=== PATIENT | female | born 1955 | race Caucasian/White ===

== ENCOUNTER 2023-04-27 05:44 | Observation (INO) ==
[2023-04-27 06:10] LABS: Basophils # (auto) 0.06 K/uL (0-0.2); Basophils % (auto) 0.6 %; Eosinophils # (auto) 0.25 K/uL (0-0.50); Eosinophils % (auto) 2.5 %; Hematocrit (blood only) 37.1 % (37.0-47.0); Hemoglobin 12.6 g/dl (12.0-16.0); Immature Granulocytes # (auto) 0.03 K/uL (0.01-0.20); Immature Granulocytes % (auto) 0.3 %; Lymphocytes # (auto) 4.02 K/uL (1.2-3.4); Lymphocytes % (auto) 39.5 %; Mean Corpuscular Hemoglobin 29.9 pg (25.0-34.0); Mean Corpuscular Volume 88.1 fL (80.0-100.0); Mean Platelet Volume 9.9 fL (9.4-12.4); Monocytes # (auto) 0.72 K/uL (0.11-0.59); Monocytes % (auto) 7.1 %; Neutrophils # (auto) 5.11 K/uL (1.40-6.50); Platelet Count 307 K/uL (130-400); RDW Coefficient of Variation 12.8 % (11.5-14.5); RDW Standard Deviation 41.2 fL (36.4-46.3); Red Blood Count 4.21 M/uL (4.20-5.40); White Blood Count 10.19 K/ul (4.8-10.8)
[2023-04-27] MEDS ORDERED: NITROGLYCERIN SL 0.4 MG/TAB TAB SL STA (06:19)
--- NOTE | 2023-04-27 06:24 | Emergency Department Note ---
Impression & Plan Chest pain ED Provider Note Name: CB ARCE Age: 67 Sex: F Arrives Via: Ambulance Informant: Patient and EMS ED Provider: Avni Carrillo MD Chief Complaint: Chest pain Impression: As per impression above Medical Decision Makin-year-old female with a history of hypertension, morbid obesity, hypothyroidism who arrives for evaluation of substernal chest pressure radiating down her right arm to elbow. Sublingual nitroglycerin with moderate improvement in pain. Patient did receive aspirin prior to arrival by EMS. Chest x-ray, EKG, troponin are all unremarkable initially. Vitals are stable. Electrolytes otherwise are unremarkable. There is no concern for PE or dissection at this time. Given her chest pain and risk factors will hospitalize for cardiac rule out. Patient stable throughout and comfortable with this plan. Prior Medical Record and Triage/Nursing Notes reviewed by Me External chart reviewed by me Differentials:ACS, PE, dissection, pneumonia, esophagitis, gastric nature, musculoskeletal amongst many other pathologies considered Vital Signs: reviewed and remarkable for no significant abnormalities Interventions: Sublingual nitroglycerin Labs:Reviewed and remarkable for no elevation of troponin all other labs reviewed by me Imagin view chest x-ray as per my interpretation no infiltrate, pneumotho rax, widened mediastinum or other concerning findings EKG:As per my interpretation. Indication chest pain. Normal sinus rhythm 87 bpm QTc of 469. There is no ectopy no ischemia appreciated Cardiac/Tele Monitoring: Cardiac Monitoring: An Order was placed for continuous cardiac monitoring. The monitor shows a rate of 70 with a normal sinus rhythm. Consults:Dr Tong SHEIKH Hospitalist Plan: Disposition:Hospitalization. Condition: Good History of Present Illness:67-year-old female arrives for evaluation of chest pain. Patient states that for the last 2 days she has been feeling significantly short of breath with any exertion. She notes mild diffuse fatigue. Patient admits that she hadBeen doing typical chores yesterday and getting severely short of breath during so. Even just taking a shower caused her to be so exhausted she had to lay down in bed.Patient awoke from sleep around 3 AM with substernal chest pressure 8 out of 10. It radiated down the right arm to the elbow. Nothing made better or worse. Denies any palpitations, shortness of breath currently, nausea, vomiting, abdominal pain, back pain, focal neurologic deficits or other concerning signs or symptoms. She denies having had symptoms like this previously. Patient does have a history of some exertional chest pain and thus it had a cath about 10 years ago which is negative. She has never had any stents. She has a history of hypertension and morbid obesity. She does not have a history of diabetes or smoking.When she developed the chest pain she called 911. She was given aspirin 324 mg p.o. and 2 sublingual nitroglycerin prior to arrival with mild improvement. She notes she is still having some mild discomfort in the substernal chest rating down her right arm. Past History: Hypertension, hypothyroidism, anxiety/depression, morbid obesity Home Medications:See Below Allergies:lyrica, sulfa Vitals:Blood Pressure: 134/81, Pulse 82, RR 19, T 36.7C, O2 94% on RA Physical Exam: GENERAL: Patient is tired appearing and in minimal distress. EYES: No scleral icterus, unremarkable pupils. RESPIRATORY: No dyspnea. Clear to auscultation and equal bilaterally. No wheeze, no rhonchi. CARDIOVASCULAR: Regular rate and rhythm.No murmurs, rubs, gallops appreciated. GASTROINTESTINAL: Abdomen soft, non-tender, no peritonitis. EXTREMITIES: Normal motion all extremities, no cyanosis, no edema. No swelling in arms or legs nor any pain with range of motion. NEUROLOGIC: Alert and oriented, No focal neurologic deficit appreciated. SKIN: No rash, no jaundice, no diaphoresis. PSYCH: Appropriate GCS: 15 ED Course: Times/Reassessments: Patient stable with improving pain. Vitals unremarkable and she is agreeable to hospitalization Avni Carrillo MD Past Med/Surg History Medical History Fibromyalgia History of anemia Macular degeneration Osteoarthritis Surgical History H/O total hysterectomy History of ankle surgery RT History of appendectomy History of cardiac cath NO STENTS (DONE [facility]") History of section X 2 History of cholecystectomy History of colonoscopy History of ERCP STENT PLACED IN BILE DUCT (STILL INTACT) History of left cataract surgery History of open reduction and internal fixation (ORIF) procedure LEFT ANKLE (HARDWARE INTACT) [place] teeth removed Family History Other Adopted No pertinent family history in first degree relatives Social History Smoking Status: Former smoker Smoking End Date: 2004; Second Hand Exposure: No; Do You Dip or Chew Tobacco: No; Hx Alcohol Use: No Hx Substance Use: No Preferred Language: Hong Konger Communication Ability: Effective Visual Impairment: No Limitations Hearing Ability: Normal Basket Turner Required: No Beliefs That Will Affect Care: None marital status: Current Living Situation: Alone current occupational status: retired How many Children do You have: 2 Feels Safe at Home: No Is there a partner from a previous relationship who is making you feel unsafe now?: No Any Concerns about Your Family Situation: No Would You Like to Speak to Someone About Your Situation: No Childhood Exposure to Second-Hand Smoke: No Diet: regular caffeine: Yes during the past year weight has: remained stable Dental Care, Regularly: No Physical Activity Frequency: Daily Seatbelt Use: always Sunscreen Use: Yes Do you think of yourself as: straight/heterosexual Gender Identity: Female Assistive Devices: None Allergies Allergies Allergy/AdvReac Type Severity Reaction Status Date / Time pregabalin [From Lyrica] Allergy Mild Rash Verified 02/25/22 19:23 Sulfa (Sulfonamide AdvReac Mild SICK TO Verified 02/25/22 19:23 Antibiotics) STOMACH Home Meds Home Medications Medication Instructions Recorded Confirmed metoprolol tartrate 100 mg tablet 100 mg PO QAM 08/07/19 04/27/23 (Lopressor) mecobalamin (vitamin B12) 1,000 1,000 mcg PO DAILY 11/13/22 04/27/23 mcg chewable tablet nabumetone 500 mg tablet 500 mg PO TID 11/13/22 04/27/23 clonidine HCl 0.1 mg tablet 0.1 mg PO BID PRN Anxiety 04/27/23 04/27/23 levothyroxine 100 mcg tablet 100 mcg PO DAILY 04/27/23 04/27/23 trazodone 150 mg tablet 300 mg PO HS 04/27/23 04/27/23 Results & Data (ED) Vital Signs Vital Signs - 24 hr 04/27/23 05:53 04/27/23 05:53 04/27/23 06:50 Temperature 36.7 C Temperature Source Oral Pulse Rate 88 82 Pulse Rate [Left Finger] 74 Pulse Rhythm [Left Finger] Regular Pulse Strength [Left Finger] Normal Respiratory Rate 19 20 Respiratory Effort / Characteristics Non-Labored Spontaneous Respiratory Depth Normal Normal Respiratory Pattern Regular Blood Pressure 134/81 Blood Pressure [Left Arm] 149/82 H Blood Pressure Mean 98 Blood Pressure Mean [Left Arm] 104 Blood Pressure Position [Left Arm] Pulse Oximetry 94 95 Oxygen Delivery Method Room Air Sepsis Recent Fever Within 48 Hours No Sepsis New/Unexplained Change in Mental Status No Sepsis Action Taken by Nursing No Action Required 04/27/23 08:31 Temperature Temperature Source Pulse Rate Pulse Rate [Left Finger] 79 Pulse Rhythm [Left Finger] Pulse Strength [Left Finger] Respiratory Rate 20 Respiratory Effort / Characteristics Respiratory Depth Respiratory Pattern Blood Pressure Blood Pressure [Left Arm] 143/89 H Blood Pressure Mean Blood Pressure Mean [Left Arm] 107 Blood Pressure Position [Left Arm] Sitting Pulse Oximetry 96 Oxygen Delivery Method Room Air Sepsis Recent Fever Within 48 Hours Sepsis New/Unexplained Change in Mental Status Sepsis Action Taken by Nursing Laboratory Data 04/27/23 05:52 04/27/23 05:52 Lab Results 04/27/23 04/27/23 04/27/23 Range/Units 05:52 05:52 05:52 WBC 10.19 (4.8-10.8) K/ul RBC 4.21 (4.20-5.40) M/uL Hgb 12.6 (12.0-16.0) g/dl Hct 37.1 (37.0-47.0) % MCV 88.1 (80.0-100.0) fL MCH 29.9 (25.0-34.0) pg MCHC 34.0 (32.0-36.0) g/dL RDW Std Deviation 41.2 (36.4-46.3) fL RDW Coeff of Angie 12.8 (11.5-14.5) % Plt Count 307 (130-400) K/uL MPV 9.9 (9.4-12.4) fL Immature Gran % (Auto) 0.3 % Neut % (Auto) 50.0 % Lymph % (Auto) 39.5 % Randolph % (Auto) 7.1 % Eos % (Auto) 2.5 % Baso % (Auto) 0.6 % Neut # (Auto) 5.11 (1.40-6.50) K/uL Lymph # (Auto) 4.02 H (1.2-3.4) K/uL Randolph # (Auto) 0.72 H (0.11-0.59) K/uL Eos # (Auto) 0.25 (0-0.50) K/uL Baso # (Auto) 0.06 (0-0.2) K/uL Immature Gran # (Auto) 0.03 (0.01-0.20) K/uL PT 10.8 (9.0-12.0) Seconds INR 1.0 (0.9-1.1) APTT 29.5 (21.0-31.0) Seconds PTT Ratio 1.0 Sodium 138 (136-145) mmol/L Potassium 4.0 (3.5-5.1) mmol/L Chloride 106 (98-107) mmol/L Carbon Dioxide 26 (21-32) mmol/L Anion Gap 6 (3-11) BUN 20 (6-23) mg/dl Creatinine 0.89 (0.6-1.2) mg/dl Est Cr Clr Drug Dosing 74.8 ml/min Est GFR ( Amer) 77.2 ml/min Est GFR (Non-Af Amer) 66.6 ml/min BUN/Creatinine Ratio 22.5 H (10-20) Glucose 131 H (70-99(Fasting)) mg/dl Calcium 8.8 (8.6-10.3) mg/dl Total Bilirubin 0.3 (0.2-1.0) mg/dl AST 12 L (13-39) U/L ALT 12 (7-52) U/L Alkaline Phosphatase 58 (34-104) U/L Troponin I High Sens 2.7 (0-14) pg/ml Total Protein 7.4 (6.0-8.3) gm/dl Albumin 3.9 (3.4-5.0) gm/dl Globulin 3.5 (2.5-4.0) gm/dl Albumin/Globulin Ratio 1.1 (0.9-2) Lipase 74 (11-82) U/L TSH (0.300-4.500) uIu/ml SARS-CoV-2, RNA, NAAT (NEGATIVE) 07/14/23 07/14/23 Range/Units 05:52 05:53 WBC (4.8-10.8) K/ul RBC (4.20-5.40) M/uL Hgb (12.0-16.0) g/dl Hct (37.0-47.0) % MCV (80.0-100.0) fL MCH (25.0-34.0) pg MCHC (32.0-36.0) g/dL RDW Std Deviation (36.4-46.3) fL RDW Coeff of Angie (11.5-14.5) % Plt Count (130-400) K/uL MPV (9.4-12.4) fL Immature Gran % (Auto) % Neut % (Auto) % Lymph % (Auto) % Randolph % (Auto) % Eos % (Auto) % Baso % (Auto) % Neut # (Auto) (1.40-6.50) K/uL Lymph # (Auto) (1.2-3.4) K/uL Randolph # (Auto) (0.11-0.59) K/uL Eos # (Auto) (0-0.50) K/uL Baso # (Auto) (0-0.2) K/uL Immature Gran # (Auto) (0.01-0.20) K/uL PT (9.0-12.0) Seconds INR (0.9-1.1) APTT (21.0-31.0) Seconds PTT Ratio Sodium (136-145) mmol/L Potassium (3.5-5.1) mmol/L Chloride (98-107) mmol/L Carbon Dioxide (21-32) mmol/L Anion Gap (3-11) BUN (6-23) mg/dl Creatinine (0.6-1.2) mg/dl Est Cr Clr Drug Dosing ml/min Est GFR ( Amer) ml/min Est GFR (Non-Af Amer) ml/min BUN/Creatinine Ratio (10-20) Glucose (70-99(Fasting)) mg/dl Calcium (8.6-10.3) mg/dl Total Bilirubin (0.2-1.0) mg/dl AST (13-39) U/L ALT (7-52) U/L Alkaline Phosphatase (34-104) U/L Troponin I High Sens (0-14) pg/ml Total Protein (6.0-8.3) gm/dl Albumin (3.4-5.0) gm/dl Globulin (2.5-4.0) gm/dl Albumin/Globulin Ratio (0.9-2) Lipase (11-82) U/L TSH 4.140 (0.300-4.500) uIu/ml SARS-CoV-2, RNA, NAAT NEGATIVE (NEGATIVE) Administered Medications Morphine Sulfate (Morphine Sulfate 2 Mg/Ml Carp) 2 mg IV Q30M PRN PRN Reason: Chest Pain Stop: 05/11/23 10:47 Last Admin: 04/27/23 12:28 Dose: 2 mg Documented By: Nitroglycerin (Nitroglycerin Sl 0.4 Mg/Tab Tab) 0.4 mg SL Q5M PRN PRN Reason: Chest Pain Stop: 05/27/23 10:34 Last Admin: 04/27/23 12:14 Dose: 0.4 mg Documented By: Discontinued Medications Nitroglycerin (Nitroglycerin Sl 0.4 Mg/Tab Tab) 0.4 mg SL NOW STA Stop: 04/27/23 06:20 Last Admin: 04/27/23 06:26 Dose: 0.4 mg Documented By: CAMACHO Ondansetron HCl (Ondansetron Inj 2 Mg/Ml 2 Ml Vial) 4 mg IV NOW STA Stop: 04/27/23 07:03 Last Admin: 04/27/23 07:06 Dose: 4 mg Documented By: RYAN Imaging Data Radiologist's Impression: Chest X-Ray 04/27/23 05:49 XR chest 1V portable HISTORY: 67 years-old Female Chest pain, nonspecific acute chest pain COMPARISON: 01/03/2016 TECHNIQUE: AP view of the chest FINDINGS: Cardiomediastinal and hilar silhouettes are within normal limits. No pneumothorax, pleural effusion, airspace consolidation or pulmonary edema. Degenerative changes of the shoulders and spine. IMPRESSION: No acute process. ACT 112: Negative or not required by law. The above report was generated using voice recognition software. It may contain grammatical, syntax or spelling errors. Electronically signed by: Marlon Cantu M.D. 04/27/2023 6:44 AM Discharge Plan Visit Data Chief Complaint: Chest Pain ED Provider: Avni Carrillo Discharge Problem: Chest pain Patient Disposition: Admitted As Inpatient Discharge Instructions Interventions: ED Discharge Assessment Last Done: 04/27/23 10:25
[2023-04-27 06:25] LABS: Albumin Globulin Ratio 1.1 (0.9-2); Albumin Level 3.9 gm/dl (3.4-5.0); BUN Creatinine Ratio 22.5 (10-20); Bilirubin,Total 0.3 mg/dl (0.2-1.0); Calcium 8.8 mg/dl (8.6-10.3); Creatinine Clr Calc Pharmacy 74.8 ml/min; Est GFR (African American) 77.2 ml/min; Est GFR (Non-African American) 66.6 ml/min; Globulin 3.5 gm/dl (2.5-4.0); Total Protein 7.4 gm/dl (6.0-8.3)
[2023-04-27 06:30] LABS: Troponin I High Sensitivity 2.7 pg/ml (0-14)
[2023-04-27 06:36] LABS: Partial Thromboplastin Time 29.5 Seconds (21.0-31.0); Prothrombin Time 10.8 Seconds (9.0-12.0)
--- NOTE | 2023-04-27 06:46 | XRay Report ---
XR chest 1V portable HISTORY: 67 years-old Female Chest pain, nonspecific acute chest pain COMPARISON: 01/03/2016 TECHNIQUE: AP view of the chest FINDINGS: Cardiomediastinal and hilar silhouettes are within normal limits. No pneumothorax, pleural effusion, airspace consolidation or pulmonary edema. Degenerative changes of the shoulders and spine. IMPRESSION: No acute process. ACT 112: Negative or not required by law. The above report was generated using voice recognition software. It may contain grammatical, syntax o r spelling errors. Electronically signed by: Marlon Cantu M.D. 04/27/2023 6:44 AM
[2023-04-27] MEDS ORDERED: ONDANSETRON INJ 2 MG/ML 2 ML VIAL IV STA (07:02)
--- NOTE | 2023-04-27 08:30 | History & Physical Report ---
Date of Service April 27, 2023 Assessment & Plan (1) Chest pain: Plan: Possible anginal symptoms including chest pressure, nausea, improved with nitro per ER EKG and troponin initial are without evidence of acute NH, trend troponins so far negative Moderate HEART score Echo ordered, and have asked Cardiology to evaluate for consideration for catheterization if indicated Add Heparin gtt if troponin is positive on repeat check or EKG changes noted Nitro prn chest pressure/pain Other possible etiologies include anxiety, MSK, will consider after cardiac workup complete (2) HTN (hypertension): Plan: Continue home metoprolol, BP 130s systolic (3) Hypothyroidism: Plan: Continue levothyroxine, TSH 4.140 this admission (4) Anxiety and depression: Plan: Continue home clonidine, trazodone Question if symptoms are exacerbated by anxiety, discuss further with patient and recommend follow up with PCP regarding anxiety Plan FULL CODE Heart Healthy diet Lovenox for DVT ppx PCU status History of Present Illness Chief Complaint: chest pressure Primary Care Provider: Pernell Hester, DO Pressure around 2AM "like an elephant on her chest", radiated into right arm and jaw, with associated nausea. Exhausted the last two days, could "barely get out of her chair yesterday which is not her", and had to take a break and lie down after a shower yesterday. No complaints of SOB, abdominal pain, diaphoresis. No history of NH in the past. Symptoms relieved in ER with nitro, also given appropriate aspirin. Troponin initial and EKG without evidence of NH. Patient denies chest pressure at time of my interview. Allergies Allergy/AdvReac Type Severity Reaction Status Date / Time pregabalin [From Lyrica] Allergy Mild Rash Verified 02/25/22 19:23 Sulfa (Sulfonamide AdvReac Mild SICK TO Verified 02/25/22 19:23 Antibiotics) STOMACH Home Medications Medication Instructions Recorded Confirmed Type metoprolol tartrate 100 mg tablet 100 mg PO QAM 08/07/19 04/27/23 History (Lopressor) mecobalamin (vitamin B12) 1,000 1,000 mcg PO DAILY 11/13/22 04/27/23 History mcg chewable tablet nabumetone 500 mg tablet 500 mg PO TID 11/13/22 04/27/23 History clonidine HCl 0.1 mg tablet 0.1 mg PO BID PRN Anxiety 04/27/23 04/27/23 History levothyroxine 100 mcg tablet 100 mcg PO DAILY 04/27/23 04/27/23 History trazodone 150 mg tablet 300 mg PO HS 04/27/23 04/27/23 History Past Med/Surg History Medical History Fibromyalgia History of anemia Macular degeneration Osteoarthritis Surgical History H/O total hysterectomy History of ankle surgery RT History of appendectomy History of cardiac cath NO STENTS (DONE [facility]") History of section X 2 History of cholecystectomy History of colonoscopy History of ERCP STENT PLACED IN BILE DUCT (STILL INTACT) History of left cataract surgery History of open reduction and internal fixation (ORIF) procedure LEFT ANKLE (HARDWARE INTACT) [place] teeth removed Family History Other Adopted No pertinent family history in first degree relatives Social History Smoking Status: Former smoker Smoking End Date: 2004; Second Hand Exposure: No; Do You Dip or Chew Tobacco: No; Hx Alcohol Use: No Hx Substance Use: No Preferred Language: Mohawk Communication Ability: Effective Visual Impairment: No Limitations Hearing Ability: Normal Transplant Nurse Practitioner Required: No Beliefs That Will Affect Care: None marital status: Current Living Situation: Alone current occupational status: retired How many Children do You have: 2 Feels Safe at Home: No Is there a partner from a previous relationship who is making you feel unsafe now?: No Any Concerns about Your Family Situation: No Would You Like to Speak to Someone About Your Situation: No Childhood Exposure to Second-Hand Smoke: No Diet: regular caffeine: Yes during the past year weight has: remained stable Dental Care, Regularly: No Physical Activity Frequency: Daily Seatbelt Use: always Sunscreen Use: Yes Do you think of yourself as: straight/heterosexual Gender Identity: Female Assistive Devices: None Review of Systems Constitutional: no fever and no chills Respiratory: no cough and no dyspnea Cardiovascular: + chest pain and + radiating jaw, neck or arm pain; no palpitations Gastrointestinal: no abdominal pain, no nausea and no vomiting Physical Exam Constitutional: WD/WN, vitals as above Respiratory: normal respiratory effort, lungs clear to auscultation Cardiovascular: RRR, no murmur, no edema Gastrointestinal (Abdomen): normal bowel sounds, soft, nontender, no hepatosplenomegaly Skin: no rashes, warm and dry Psychiatric: A+Ox3, euthymic affect Results & Data Results & Data Vital Signs (Past 12 Hours) Vital Signs Temp Pulse Pulse Resp BP BP Pulse Ox 04/27/23 06:50 74 20 149/82 H 95 04/27/23 05:53 82 04/27/23 05:53 36.7 C 88 19 134/81 94 O2 Del Method 04/27/23 06:50 04/27/23 05:53 04/27/23 05:53 Room Air PG Care Time/CCT Total # of Minutes Spent Total Time Spent with Patient: Total time spent is greater than 50% in coordination of care (as documented) at patient's floor/unit and/or counseling patient: Coding Level of Care Code 74992 INT INP/OBS CARE 3/75MIN Diagnoses Chest pain R07.9 HTN (hypertension) I10 Hypothyroidism E03.9 Anxiety and depression F41.9; F32.9
[2023-04-27] MEDS ORDERED: NITROGLYCERIN SL 0.4 MG/TAB TAB SL PRN ×2 (10:35→10:48)
[2023-04-27] MEDS ORDERED: cloNIDine HCL 0.1 MG TAB PO PRN (10:48)
[2023-04-27] MEDS ORDERED: MoRPHine SULFATE 2 MG/ML CARP IV PRN (10:48)
[2023-04-27] MEDS ORDERED: ONDANSETRON INJ 2 MG/ML 2 ML VIAL IV PRN (10:48)
[2023-04-27] MEDS ORDERED: ACETAMINOPHEN 325 MG TAB PO PRN (10:48)
--- NOTE | 2023-04-27 12:14 | Electrocardiogram Report ---
Test Reason : Blood Pressure : / mmHG Vent. Rate : 087 BPM Atrial Rate : 087 BPM P-R Int : 172 ms QRS Dur : 078 ms QT Int : 390 ms P-R-T Axes : 042 -47 011 degrees QTc Int : 469 ms Normal sinus rhythm Left anterior fascicular block Nonspecific ST abnormality Abnormal ECG When compared with ECG of 02-MAR-2022 03:19, Nonspecific T wave abnormality has replaced inverted T waves in Inferior leads T wave inversion no longer evident in Anterior leads Confirmed by Alexis Ibarra ([id number]) on 04/27/2023 12:14:18 PM Referred By: Confirmed By:Andrei Ibarra
--- NOTE | 2023-04-27 12:31 | XCELERA ---
[id number] \\[id number]
--- NOTE | 2023-04-27 14:37 | Cardiology Consultation ---
Date of Consultation April 27, 2023 Assessment & Plan (1) Chest pain: Plan 1. Chest pain: While the character of her symptoms is certainly concerning for coronary etiology, the extended nature of her symptoms without any rise in biomarkers suggest this is not related to coronary insufficiency or acute coronary syndrome. Echocardiogram was also obtained during symptoms without evidence of wall motion abnormality. Our EKG is not entirely normal common appears unchanged from obtained couple of months ago. She does have some reproducible symptoms with palpation of the sternum. I think we can confidently say this is not an acute coronary syndrome. Also no symptoms or EKG changes concerning for pericarditis. She did not good a good history for reflux or gastrointestinal symptoms. No dyspnea or hypoxia to suggest pulmonary embolus. Possibly just musculoskeletal and can be treated accordingly. History of Present Illness Reason for Consultation: Chest pain Requesting Physician: Tong Attending Physician: Linette Fortune, DO History of Present Illness The patient is a 59-year-old woman without a known history of cardiac disease who presents to the hospital with symptoms of chest discomfort. He stated that at 2:00 a.m. this morning she was woken from sleep with severe chest discomfort. She describes this as an elephant sitting on my chest. She tried some home remedies such as anti acid. However, after 2 hours her symptoms had not abated and she elected to call EMS. She was brought to the emergency room for evaluation. She states that in route to the emergency room she was given nitroglycerin without much change in her symptom. Events she was given some morphine which improved but did not relieve her symptoms entirely. It did not appear to be any positional component. There was no pleuritic chest pain. This did not appear to be associated with significant breathing difficulty. The patient states she had similar symptoms prior to a cardiac catheterization performed in 2013. At that time she did undergo coronary angiography which revealed normal coronary arteries. She is very sedentary individual. She is able to perform routine activity such as walking, but does not exercise regularly. She avoids strenuous activity. She did not report symptoms of limiting dyspnea or other symptoms of chest discomfort. Occasional symptoms of dizziness but no syncope. Recently she has also been very fatigued. She states that this has limited her more than other symptoms recently. She took a shower earlier this week and afterwards felt very exhausted. At this time the patient continues to have some symptoms of chest discomfort that are improved from admission. Allergies Allergy/AdvReac Type Severity Reaction Status Date / Time pregabalin [From Lyrica] Allergy Mild Rash Verified 02/25/22 19:23 Sulfa (Sulfonamide AdvReac Mild SICK TO Verified 02/25/22: Antibiotics) STOMACH Home Medications Medication Instructions Recorded Confirmed Type metoprolol tartrate 100 mg tablet 100 mg PO QAM 08/07/19 04/27/23 History (Lopressor) mecobalamin (vitamin B12) 1,000 1,000 mcg PO DAILY 11/13/22 04/27/23 History mcg chewable tablet nabumetone 500 mg tablet 500 mg PO TID 11/13/22 04/27/23 History clonidine HCl 0.1 mg tablet 0.1 mg PO BID PRN Anxiety 04/27/23 04/27/23 History levothyroxine 100 mcg tablet 100 mcg PO DAILY 04/27/23 04/27/23 History trazodone 150 mg tablet 300 mg PO HS 04/27/23 04/27/23 History Patient History Medical History Fibromyalgia History of anemia Macular degeneration Osteoarthritis Surgical History H/O total hysterectomy History of ankle surgery RT History of appendectomy History of cardiac cath NO STENTS (DONE [facility]") History of section X 2 History of cholecystectomy History of colonoscopy History of ERCP STENT PLACED IN BILE DUCT (STILL INTACT) History of left cataract surgery History of open reduction and internal fixation (ORIF) procedure LEFT ANKLE (HARDWARE INTACT) [place] teeth removed Family History Other Adopted No pertinent family history in first degree relatives Social History Smoking Status: Former smoker Smoking End Date: 2004; Second Hand Exposure: No; Do You Dip or Chew Tobacco: No; Hx Alcohol Use: No Hx Substance Use: No Preferred Language: Comoran Communication Ability: Effective Visual Impairment: No Limitations Hearing Ability: Normal Public Interviewer Required: No Beliefs That Will Affect Care: None marital status: Current Living Situation: Alone current occupational status: retired How many Children do You have: 2 Feels Safe at Home: No Is there a partner from a previous relationship who is making you feel unsafe now?: No Any Concerns about Your Family Situation: No Would You Like to Speak to Someone About Your Situation: No Childhood Exposure to Second-Hand Smoke: No Diet: regular caffeine: Yes during the past year weight has: remained stable Dental Care, Regularly: No Physical Activity Frequency: Daily Seatbelt Use: always Sunscreen Use: Yes Do you think of yourself as: straight/heterosexual Gender Identity: Female Assistive Devices: None Review of Systems Review of Systems: Per HPI. Fatigue, tiredness. She reports good sleep hygiene. No orthopnea. No lower extremity edema. No sense of palpitation. No recent sick contacts. Physical Exam Physical Exam: She is alert and oriented x3. Mood affect appear normal. She answered all questions appropriately. HEENT: Sclerae are anicteric. Pupils are equal and reactive to light and accommodation. Extraocular movements were intact. Neuro: Cranial nerves intact Lungs: Lungs are clear to auscultation bilaterally. There are no rales wheezes or rhonchi. She has normal respiratory effort without use of accessory muscles. There is normal pulmonary excursion. Cardiac: The rhythm was regular. S1 and S2 were normal. There are no murmurs on examination. The PMI was not markedly displaced on palpation. Abdomen: The abdomen was soft and nontender. Extremities: Patient has bilateral radial pulses that are equal in intensity. There is no evidence cyanosis or clubbing. There was no evidence of significant peripheral edema bilaterally. Skin: There are no rashes noted on examination today. Results & Data Vital Signs (Past 12 Hours) Vital Signs Temp Pulse Pulse Resp BP BP Pulse Ox 04/27/23 12:22 76 130/73 04/27/23 10:53 36.3 C L 74 18 126/80 94 04/27/23 09:30 77 20 143/77 H 98 04/27/23 08:31 79 20 143/89 H 96 04/27/23 06:50 74 20 149/82 H 95 04/27/23 05:53 82 04/27/23 05:53 36.7 C 88 19 134/81 94 O2 Del Method 04/27/23 12:22 04/27/23 10:53 Room Air 04/27/23 09:30 Room Air 04/27/23 08:31 Room Air 04/27/23 06:50 04/27/23 05:53 04/27/23 05:53 Room Air Laboratory Results Abnormal Lab Results 04/27/23 04/27/23 04/27/23 05:52 05:52 05:52 WBC 10.19 RBC 4.21 Hgb 12.6 Hct 37.1 MCV 88.1 MCH 29.9 MCHC 34.0 RDW Std Deviation 41.2 RDW Coeff of Angie 12.8 Plt Count 307 MPV 9.9 Immature Gran % (Auto) 0.3 Neut % (Auto) 50.0 Lymph % (Auto) 39.5 [place] % (Auto) 7.1 Eos % (Auto) 2.5 Baso % (Auto) 0.6 Neut # (Auto) 5.11 Lymph # (Auto) 4.02 H [place] # (Auto) 0.72 H Eos # (Auto) 0.25 Baso # (Auto) 0.06 Immature Gran # (Auto) 0.03 PT 10.8 INR 1.0 APTT 29.5 PTT Ratio 1.0 Sodium 138 Potassium 4.0 Chloride 106 Carbon Dioxide 26 Anion Gap 6 BUN 20 Creatinine 0.89 Est Cr Clr Drug Dosing 74.8 Est GFR ( Amer) 77.2 Est GFR (Non-Af Amer) 66.6 BUN/Creatinine Ratio 22.5 H Glucose 131 H Calcium 8.8 Total Bilirubin 0.3 AST 12 L ALT 12 Alkaline Phosphatase 58 Troponin I High Sens 2.7 Total Protein 7.4 Albumin 3.9 Globulin 3.5 Albumin/Globulin Ratio 1.1 Lipase 74 TSH SARS-CoV-2, RNA, NAAT 04/27/23 04/27/23 04/27/23 05:52 05:53 11:07 WBC RBC Hgb Hct MCV MCH MCHC RDW Std Deviation RDW Coeff of Angie Plt Count MPV Immature Gran % (Auto) Neut % (Auto) Lymph % (Auto) [place] % (Auto) Eos % (Auto) Baso % (Auto) Neut # (Auto) Lymph # (Auto) [place] # (Auto) Eos # (Auto) Baso # (Auto) Immature Gran # (Auto) PT INR APTT PTT Ratio Sodium Potassium Chloride Carbon Dioxide Anion Gap BUN Creatinine Est Cr Clr Drug Dosing Est GFR ( Amer) Est GFR (Non-Af Amer) BUN/Creatinine Ratio Glucose Calcium Total Bilirubin AST ALT Alkaline Phosphatase Troponin I High Sens 3.2 Total Protein Albumin Globulin Albumin/Globulin Ratio Lipase TSH 4.140 SARS-CoV-2, RNA, NAAT NEGATIVE Diagnostic Findings Chest x-ray obtained the time admission not reveal any acute cardiopulmonary process Echocardiogram performed today revealed normal LV systolic function with ejection fraction of 60 65%. Mild LVH. Stage I diastolic dysfunction. Cardiac catheterization performed 08/25/2014 [facility]: Normal coronary arteries ECG Additional Comments: EKG the time admission revealed normal sinus rhythm with nonspecific ST and T- wave changes PG Care Time/CCT Total # of Minutes Spent Total Time Spent with Patient: Total time spent is greater than 50% in coordination of care (as documented) at patient's floor/unit and/or counseling patient: Coding Level of Care Code 66168 INT INP/OBS CARE 3/75MIN Diagnoses Chest pain R07.9 Chest pain type: unspecified (1) Chest pain Chest pain type: unspecified Qualified Code(s): R07.9 - Chest pain, unspecified
[2023-04-27] MEDS: NABUMETONE 500 MG TABLET PO SCH ×2 (14:38→20:21)
[2023-04-27] MEDS: ACETAMINOPHEN 500 MG TAB PO SCH ×2 (16:04→22:44)
[2023-04-27] MEDS: LIDOCAINE 5% 1 PATCH TD SCH (16:05)
[2023-04-27] MEDS: oxyCODONE HCL IR 5 MG TAB (IMMEDIATE RELEASE) PO PRN (20:18)
[2023-04-27] MEDS ORDERED: traZODone HCL 100 MG TAB PO SCH (21:00)
[2023-04-28 03:22] LABS: Chol HDL Ratio 4.3 (0-5)
[2023-04-28] MEDS ORDERED: LEVOTHYROXINE SODIUM 100 MCG TABLET PO SCH (06:30)
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
[2023-04-28] MEDS ORDERED: ENOXAPARIN INJ 40 MG/0.4 ML SYR SQ SCH (09:00)
[2023-04-28] MEDS ORDERED: CYANOCOBALAMIN (B-12) 500 MCG TABLET PO SCH (09:00)
[2023-04-28] MEDS ORDERED: ASPIRIN 81 MG ECTAB PO SCH (09:00)
[2023-04-28] MEDS ORDERED: METOPROLOL TARTRATE 100 MG TAB PO SCH (09:00)
[2023-04-28] MEDS: ACETAMINOPHEN 500 MG TAB PO SCH (09:12)
[2023-04-28] MEDS: LIDOCAINE 5% 1 PATCH TD SCH (09:12)
[2023-04-28] MEDS: NABUMETONE 500 MG TABLET PO SCH (09:12)
[2023-04-28] MEDS: oxyCODONE HCL IR 5 MG TAB (IMMEDIATE RELEASE) PO PRN (09:17)
[2023-04-28 09:18] LABS: Estimated Average Glucose 108 mg/dl; Hemoglobin A1C 5.4 % (4.5-5.6)
--- NOTE | 2023-04-28 14:18 | Electrocardiogram Report ---
Test Reason : Blood Pressure : / mmHG Vent. Rate : 083 BPM Atrial Rate : 083 BPM P-R Int : 176 ms QRS Dur : 084 ms QT Int : 410 ms P-R-T Axes : 060 -45 039 degrees QTc Int : 481 ms Normal sinus rhythm Left anterior fascicular block Nonspecific ST abnormality Abnormal ECG When compared with ECG of 27-APR-2023 05:48, Nonspecific T wave abnormality no longer evident in Anterior leads Confirmed by Ross Vasquez ([id number]) on 04/28/2023 2:18:01 PM Referred By: Pernell Hester Confirmed By:Ross Vasquez
== END 2023-04-28 12:44 | disposition home or self-care (01) ==
LOC: 4W 05:44 → ED 05:44 → 4W 10:25

== ENCOUNTER 2023-11-15 20:47 | Inpatient (IN) ==
[2023-11-15] MEDS: KETOROLAC TROMETHAMINE 15 MG/ML VIAL IV ONE (21:12)
[2023-11-15] MEDS: fentaNYL citrate PF 100 MCG/2 ML VIAL IV STA (21:13)
[2023-11-15] MEDS: LIDO/EPINEPHRINE/SOD BICARB 50 ML VIAL INFIL ONE (21:29)
[2023-11-15] MEDS: cefTRIAXone SODIUM 2,000 MG/50 ML BAG IV STA (21:34)
--- NOTE | 2023-11-15 21:38 | Emergency Department Note ---
Impression & Plan Cellulitis of right lower extremity, Abscess of right lower extremity excluding foot ED Provider Note Provider: Robel Avila MD DATE OF SERVICE: 11/15/2023 CHIEF COMPLAINT: Right leg infection pain HISTORY OF PRESENT ILLNESS: Patient is a 68-year-old presenting here for increased swelling and pain to the right leg with a known right cellulitis here. On Keflex for 2 days after visit at the PCPs office. Denies trauma or wound. Denies history of recurrent infection here. Denies fever. States has not been getting around very much has been able to walk on it but that it is quite sore. Unsure how this wound happened but increasing redness and visit by family convinced her to come here today via ambulance for evaluation. PAST MEDICAL HISTORY: As noted above MEDICATIONS: Reviewed home medications currently on Keflex SOCIAL HISTORY: Lives by herself PHYSICAL EXAM: GENERAL: alert and oriented in no acute distress on stretcher Head: normocephalic and atraumatic EYES: No injection, discharge or icterus. NECK: Trachea midline. ENT: Mucous membranes pink and moist. LUNGS: Airway patent. No retractions or to give HEART: Regular rate and rhythm. SKIN: Acyanotic, warm, dry, without rashes EXTREMITIES: Without swelling, tenderness or deformity NEUROLOGICAL: No focal deficits. No aphasia. No facial droop or slurred speech. Normal strength and tone in the extremities. Sensation to gross touch normal. Ambulatory. Patient's laboratory studies reviewed. Differential includes Cellulitis, abscess, MRSA infection, DVT, necrotizing fasciitis, dermatitis, drug eruption, allergic reaction, as well as other pathologies. IMPRESSION/MEDICAL DECISION MAKING: Patient on Keflex for the past 2 days with increasing redness and swelling to the right cintron but no systemic fevers. Just laying around and not ambulating much. Doubt DVT. Bedside ultrasound shows a clear subcutaneous fluid collection. Discussed with the patient proceed with I&D. Patient tolerated well. Given some Toradol fentanyl for pain control as well. Received an IV dose of ceftriaxone here. Basic blood work sent. Doubt represents sepsis or bacteremia however. Vitals are reassuring. Not diabetic or smoker. Wound culture from the I&D was obtained. In addition to IV ceftriaxone, with a dose of IV vancomycin. Does have some leukocytosis. Discussed with the patient given her pain and the concern given the worsening on antibiotics as an outpatient even after the I&D here she was to stay for further observation. Hospitalist team contacted. DIAGNOSIS: Right leg cellulitis and abscess DISPOSITION: Hospitalist will evaluate Patient was agreeable with this plan. INCISION and DRAINAGE: Performed by myself Indications for the procedure as well as its risks and benefits were explained to the patient who provided informed consent to proceed. Patient, procedure, and site were verified immediately before the procedure. Right anterior cintron. The affected area was prepped with iodine. Local anesthesia provided with 8 mL of 1% lidocaine with epinephrine. Abscess was incised with #11 blade and a copious amount of purulent and bloody material was expressed. More than 3 cc of purulent material expressed. Culture obtained from this. I&D cavity not packed but probed to extent for loculations. Irrigated with saline. Patient tolerated the procedure well. Bandaged with gauze and Cob[place] afterwards. Past Med/Surg History Medical History History of anemia Macular degeneration Surgical History History of left cataract surgery History of open reduction and internal fixation (ORIF) procedure LEFT ANKLE (HARDWARE INTACT) History of section X 2 H/O total hysterectomy History of ankle surgery RT History of colonoscopy History of ERCP STENT PLACED IN BILE DUCT (STILL INTACT) History of cholecystectomy History of appendectomy [place] teeth removed History of cardiac cath NO STENTS (DONE [facility]") Family History Other Adopted No pertinent family history in first degree relatives Social History Smoking Status: Never smoker Second Hand Exposure: No; Do You Dip or Chew Tobacco: No; Hx Alcohol Use: No Hx Substance Use: No Preferred Language: Croatian Communication Ability: Effective Visual Impairment: Limited Hearing Ability: Normal Fire Watchman Required: No Beliefs That Will Affect Care: None marital status: Current Living Situation: Alone current occupational status: retired How many Children do You have: 2 Feels Safe at Home: Yes Childhood Exposure to Second-Hand Smoke: No Diet: regular caffeine: Yes during the past year weight has: remained stable Dental Care, Regularly: No Physical Activity Frequency: Daily Seatbelt Use: always Sunscreen Use: Yes Do you think of yourself as: straight/heterosexual Gender Identity: Female Assistive Devices: Glasses Allergies Allergies Allergy/AdvReac Type Severity Reaction Status Date / Time pregabalin [From Lyrica] Allergy Mild Rash Verified 11/15/23 22:03 Sulfa (Sulfonamide AdvReac Mild SICK TO Verified 11/15/23 22:03 Antibiotics) STOMACH Home Meds Home Medications Medication Instructions Recorded Confirmed mecobalamin (vitamin B12) 1,000 1,000 mcg PO DAILY 11/13/22 11/15/23 mcg chewable tablet nabumetone 500 mg tablet 500 mg PO TID 11/13/22 11/15/23 trazodone 150 mg tablet 300 mg PO HS 04/27/23 11/15/23 clonidine HCl 0.1 mg tablet 0.2 mg PO BID PRN Anxiety 05/04/23 11/15/23 bupropion HCl 100 mg tablet,12 hr 100 mg PO DAILY 07/17/23 11/15/23 sustained-release (Wellbutrin SR) Previous Rx's Medication Instructions Recorded venlafaxine 50 mg tablet 50 mg PO BID #60 tabs 04/30/23 lidocaine 4 % topical patch 1 patch topical DAILY PRN pain #30 07/27/23 (Salonpas (lidocaine)) ea gabapentin 300 mg capsule 300 mg PO TID PRN pain #90 caps 09/25/23 levothyroxine 100 mcg tablet 100 mcg PO DAILY #90 tabs 10/22/23 cephalexin 500 mg capsule 500 mg PO TID #30 caps 11/14/23 metoprolol tartrate 100 mg tablet 100 mg PO QAM #90 tabs 11/14/23 (Lopressor) Results & Data (ED) Vital Signs Vital Signs - 24 hr 11/15/23 20:49 11/15/23 21:17 11/15/23 22:53 Temperature 36.4 C L Temperature Source Oral Pulse Rate 69 65 Pulse Rate [Apical] 68 Pulse Rhythm Regular Pulse Rhythm [Apical] Regular Pulse Strength Normal Pulse Strength [Apical] Normal Respiratory Rate 20 20 Respiratory Effort / Characteristics Non-Labored Non-Labored Respiratory Depth Normal Normal Respiratory Pattern Regular Regular Blood Pressure 132/77 Blood Pressure [Right Arm] 142/72 H Blood Pressure Mean 95 Blood Pressure Mean [Right Arm] 95 Blood Pressure Position Sitting Blood Pressure Position [Right Arm] Lying Pulse Oximetry 97 96 Oxygen Delivery Method Room Air Room Air Sepsis Recent Fever Within 48 Hours No Sepsis New/Unexplained Change in Mental Status No Sepsis Action Taken by Nursing No Action Required Laboratory Data 11/15/23 20:59 11/15/23 20:59 Lab Results 11/15/23 Range/Units 20:59 WBC 15.61 H (4.8-10.8) K/ul RBC 4.09 L (4.20-5.40) M/uL Hgb 12.2 (12.0-16.0) g/dl Hct 37.7 (37.0-47.0) % MCV 92.2 (80.0-100.0) fL MCH 29.8 (25.0-34.0) pg MCHC 32.4 (32.0-36.0) g/dL RDW Std Deviation 44.2 (36.4-46.3) fL RDW Coeff of Angie 13.2 (11.5-14.5) % Plt Count 347 (130-400) K/uL MPV 10.2 (9.4-12.4) fL Immature Gran % (Auto) 0.7 % Neut % (Auto) 72.4 % Lymph % (Auto) 17.9 % [place] % (Auto) 6.9 % Eos % (Auto) 1.7 % Baso % (Auto) 0.4 % Neut # (Auto) 11.30 H (1.40-6.50) K/uL Lymph # (Auto) 2.79 (1.20-3.40) K/uL [place] # (Auto) 1.07 H (0.11-0.59) K/uL Eos # (Auto) 0.27 (0.00-0.50) K/uL Baso # (Auto) 0.07 (0.00-0.20) K/uL Immature Gran # (Auto) 0.11 (0.01-0.20) K/uL PT 10.9 (9.0-12.0) Seconds INR 1.0 (0.9-1.1) Sodium 138 (136-145) mmol/L Potassium 3.7 (3.5-5.1) mmol/L Chloride 102 (98-107) mmol/L Carbon Dioxide 30 (21-32) mmol/L Anion Gap 6 (3-11) BUN 19 (6-23) mg/dl Creatinine 0.87 (0.6-1.2) mg/dl Est Cr Clr Drug Dosing 71.4 ml/min Est GFR ( Amer) 78.8 ml/min Est GFR (Non-Af Amer) 68.0 ml/min BUN/Creatinine Ratio 21.8 H (10-20) Glucose 106 H (70-99(Fasting)) mg/dl Calcium 8.8 (8.6-10.3) mg/dl Total Bilirubin 0.7 (0.2-1.0) mg/dl AST 13 (13-39) U/L ALT 21 (7-52) U/L Alkaline Phosphatase 72 (34-104) U/L Total Protein 7.1 (6.0-8.3) gm/dl Albumin 3.6 (3.4-5.0) gm/dl Globulin 3.5 (2.5-4.0) gm/dl Albumin/Globulin Ratio 1.0 (0.9-2) Administered Medications Vancomycin HCl 2,250 mg/ (Sodium Chloride) 545 mls @ 200 mls/hr IV NOW ONE Stop: 11/16/23 01:05 Last Admin: 11/15/23 22:47 Dose: 200 mls/hr Documented By: DEEPIKA Discontinued Medications Fentanyl Citrate (Fentanyl Citrate Pf 100 Mcg/2 Ml Vial) 50 mcg IV NOW STA Stop: 11/15/23 21:07 Last Admin: 11/15/23 21:13 Dose: 50 mcg Documented By: DAVID Fentanyl Citrate (Fentanyl Citrate Pf 100 Mcg/2 Ml Vial) 50 mcg IV NOW ONE Stop: 11/15/23 23:01 Last Admin: 11/15/23 23:08 Dose: 50 mcg Documented By: DEEPIKA Ceftriaxone Sodium (Rocephin) 2,000 mg in 50 mls @ 100 mls/hr IV NOW STA Stop: 11/15/23 21:42 Last Infusion: 11/15/23 22:30 Dose: Infused Documented By: Admin: 11/15/23 21:34 Dose: 100 mls/hr Documented By: DEEPIKA Ketorolac Tromethamine (Ketorolac Tromethamine 15 Mg/Ml Vial) 10 mg IV NOW ONE Stop: 11/15/23 21:07 Last Admin: 11/15/23 21:12 Dose: 10 mg Documented By: DAVID Lidocaine/Epinephrine (Lido/Epinephrine/Sod Bicarb 50 Ml Vial) Confirm Administered Dose 1 ml INFIL .STK-MED ONE Stop: 11/15/23 21:17 Last Admin: 11/15/23 21:29 Dose: 1 ml Documented By: AAW Discharge Plan Visit Data Chief Complaint: Leg Injury/Pain Stated Complaint: LEG EDEMA, CELLULITIS ED Provider: Robel Avila Discharge Problem: Cellulitis of right lower extremity, Abscess of right lower extremity excluding foot Patient Disposition: Being Evaluated by Hospitalist
[2023-11-15 21:41] LABS: Albumin Level 3.6 gm/dl (3.4-5.0); BUN Creatinine Ratio 21.8 (10-20); Bilirubin,Total 0.7 mg/dl (0.2-1.0); Calcium 8.8 mg/dl (8.6-10.3); Creatinine Clr Calc Pharmacy 71.4 ml/min; Est GFR (African American) 78.8 ml/min; Globulin 3.5 gm/dl (2.5-4.0); Potassium 3.7 mmol/L (3.5-5.1); Total Protein 7.1 gm/dl (6.0-8.3)
[2023-11-15 21:43] LABS: Basophils # (auto) 0.07 K/uL (0.00-0.20); Basophils % (auto) 0.4 %; Eosinophils # (auto) 0.27 K/uL (0.00-0.50); Eosinophils % (auto) 1.7 %; Hematocrit (blood only) 37.7 % (37.0-47.0); Hemoglobin 12.2 g/dl (12.0-16.0); Immature Granulocytes # (auto) 0.11 K/uL (0.01-0.20); Immature Granulocytes % (auto) 0.7 %; Lymphocytes # (auto) 2.79 K/uL (1.20-3.40); Lymphocytes % (auto) 17.9 %; Mean Corpuscular Hemoglobin 29.8 pg (25.0-34.0); Mean Corpuscular Hgb Conc 32.4 g/dL (32.0-36.0); Mean Corpuscular Volume 92.2 fL (80.0-100.0); Mean Platelet Volume 10.2 fL (9.4-12.4); Monocytes # (auto) 1.07 K/uL (0.11-0.59); Monocytes % (auto) 6.9 %; Neutrophils % (auto) 72.4 %; Platelet Count 347 K/uL (130-400); RDW Coefficient of Variation 13.2 % (11.5-14.5); RDW Standard Deviation 44.2 fL (36.4-46.3); Red Blood Count 4.09 M/uL (4.20-5.40); White Blood Count 15.61 K/ul (4.8-10.8)
[2023-11-15 21:55] LABS: Prothrombin Time 10.9 Seconds (9.0-12.0)
[2023-11-15] MEDS ORDERED: VANCOMYCIN CONSULT ACTIVE PRN (22:22)
[2023-11-15] MEDS: VANCOMYCIN HCL 2,250 MG in SODIUM CHLORIDE 0.9% 500 ML IV ONE (22:47)
[2023-11-15] MEDS: fentaNYL citrate PF 100 MCG/2 ML VIAL IV ONE (23:08)
--- NOTE | 2023-11-15 23:17 | History & Physical Report ---
Date of Service November 15, 2023 Assessment & Plan (1) Cellulitis of right lower extremity: Plan: Patient with purulent cellulitis s/p I/D performed in the ER. She is afebrile, HD stable and non-toxic in appearance. WBC elevated at 15.6 -Observation to medical -Monitor area of cellulitis/redness -Vancomycin while inpatient. Patient may be discharged on Doxycycline for continued treatment of purulent cellulitis pending culture results -PT evaluation for reported ambulatory dysfunction (2) HTN (hypertension): Plan: Chronic. Mildly hypertensive at 142/72 -Pain control -Continue metoprolol (3) Anxiety and depression: Plan: Chronic -Continue Bupropion -Continue Venlafaxine -Continue Clonidine PRN anxiety -Continue Trazodone (4) Hypothyroidism: Plan: Chronic. TSH within normal limits at 3.222 -Continue Synthroid F/E/N - Saline lock. Electrolytes WNL. Heart healthy diet Ppx - Low risk for DVT Code - Full per discussion with patient Dispo - Observation to medical History of Present Illness Chief Complaint: RLE cellulitis, unable to walk at home Primary Care Provider: DO Agnieszka Acharya Vineet is a 68yo female with history of hypertension presenting with RLE cellulitis. Patient reports redness and pain of her RLE that started on 11/11/23. She does not recall any trauma or skin breaks or bites. She had progression of redness and pain and was seen by her PCP on 11/14/23. She was noted to have cellulitis and was started on Cephalexin 500mg po TID. She has been taking her medication without difficulty but has continue to have redness and pain. Over the last day she has had increased difficulty walking and has been using her walker at home. In the ER she is afebrile HD stable, NAD Patient was noted to have an area of fluctuance on her anterior leg and a bedside ultrasound showed a clear subcutaneous fluid collection. A bedside I/D was performed by ER attending and the area was cleaned and dressed. Patient overall doing well. Reports that pain has improved. No additional complaints at this time - she denies fever, chills, nausea, vomiting, diarrhea, constipation, cough, CP ER Course: Vancomycin Ceftriaxone Toradol 10mg IV Fentanyl 50mcg IV x 2 Allergies Allergy/AdvReac Type Severity Reaction Status Date / Time pregabalin [From Lyrica] Allergy Mild Rash Verified 11/15/23 22:03 Sulfa (Sulfonamide AdvReac Mild SICK TO Verified 11/15/23 22:03 Antibiotics) STOMACH Home Medications Medication Instructions Recorded Confirmed Type mecobalamin (vitamin B12) 1,000 1,000 mcg PO DAILY 11/13/22 11/15/23 History mcg chewable tablet nabumetone 500 mg tablet 500 mg PO TID 11/13/22 11/15/23 History trazodone 150 mg tablet 300 mg PO HS 04/27/23 11/15/23 History venlafaxine 50 mg tablet 50 mg PO BID #60 tabs 04/30/23 11/15/23 Rx clonidine HCl 0.1 mg tablet 0.2 mg PO BID PRN Anxiety 05/04/23 11/15/23 History bupropion HCl 100 mg tablet,12 hr 100 mg PO DAILY 07/17/23 11/15/23 History sustained-release (Wellbutrin SR) lidocaine 4 % topical patch 1 patch topical DAILY PRN pain #30 07/27/23 11/15/23 Rx (Salonpas (lidocaine)) ea gabapentin 300 mg capsule 300 mg PO TID PRN pain #90 caps 09/25/23 11/15/23 Rx levothyroxine 100 mcg tablet 100 mcg PO DAILY #90 tabs 10/22/23 11/15/23 Rx cephalexin 500 mg capsule 500 mg PO TID #30 caps 11/14/23 11/15/23 Rx metoprolol tartrate 100 mg tablet 100 mg PO QAM #90 tabs 11/14/23 11/15/23 Rx (Lopressor) Past Med/Surg History Medical History History of anemia Macular degeneration Surgical History History of left cataract surgery History of open reduction and internal fixation (ORIF) procedure LEFT ANKLE (HARDWARE INTACT) History of section X 2 H/O total hysterectomy History of ankle surgery RT History of colonoscopy History of ERCP STENT PLACED IN BILE DUCT (STILL INTACT) History of cholecystectomy History of appendectomy [place] teeth removed History of cardiac cath NO STENTS ([facility]") Family History Other Adopted No pertinent family history in first degree relatives Social History Smoking Status: Never smoker Second Hand Exposure: No; Do You Dip or Chew Tobacco: No; Hx Alcohol Use: No Hx Substance Use: No Preferred Language: Slovak Communication Ability: Effective Visual Impairment: Limited Hearing Ability: Normal Display Artist Required: No Beliefs That Will Affect Care: None marital status: Current Living Situation: Alone current occupational status: retired How many Children do You have: 2 Feels Safe at Home: Yes Childhood Exposure to Second-Hand Smoke: No Diet: regular caffeine: Yes during the past year weight has: remained stable Dental Care, Regularly: No Physical Activity Frequency: Daily Seatbelt Use: always Sunscreen Use: Yes Do you think of yourself as: straight/heterosexual Gender Identity: Female Assistive Devices: Glasses Review of Systems Review of Systems: All systems reviewed & are unremarkable except as noted in HPI & below Physical Exam Physical Exam: General: patient resting comfortably, NAD, non-toxic in appearance, AA&O x 4 Skin: warm, dry, intact, no rashes or lesions HEENT: NC/AT, PERRL, EOMI, anicteric sclera, conjunctiva without injection, external ear normal to inspection and nontender, nares patent, moist mucus membranes, dentition intact, no oropharyngeal lesions, neck supple, trachea midline, no LAD, no thyromegaly, no JVD Heart: +S1/S2, regular, no m/r/g Lungs: equal air entry bilaterally, no rales/rhonchi/wheezes Abd: +BS, soft, NT/ND, no masses/organomegaly/ascites Ext: warm, 2+ pulses in UE/LE bilaterally, no clubbing/cyanosis or edema. RLE with 2+ pulses DP and PT, dressing in place over right cintron. Area of cellulitis over ankle, warmth and redness Neuro: nonfocal, patient AA&O x 4, speech intact, no facial droop, moving all extremities on command with equal strength 5/5 Results & Data Results & Data Vital Signs (Past 12 Hours) Vital Signs Temp Pulse Pulse Resp BP BP Pulse Ox 11/15/23 22:53 68 20 142/72 H 96 11/15/23 21:17 65 11/15/23 20:49 36.4 C L 69 20 132/77 97 O2 Del Method 11/15/23 22:53 Room Air 11/15/23 21:17 11/15/23 20:49 Room Air Laboratory Results Laboratory Results WBC 15.61 K/ul (4.8-10.8) H 11/15/23 20:59 RBC 4.09 M/uL (4.20-5.40) L 11/15/23 20:59 Hgb 12.2 g/dl (12.0-16.0) 11/15/23 20:59 Hct 37.7 % (37.0-47.0) 11/15/23 20:59 MCV 92.2 fL (80.0-100.0) 11/15/23 20:59 MCH 29.8 pg (25.0-34.0) 11/15/23 20:59 MCHC 32.4 g/dL (32.0-36.0) 11/15/23 20:59 RDW Std Deviation 44.2 fL (36.4-46.3) 11/15/23 20:59 RDW Coeff of Angie 13.2 % (11.5-14.5) 11/15/23 20:59 Plt Count 347 K/uL (130-400) 11/15/23 20:59 MPV 10.2 fL (9.4-12.4) 11/15/23 20:59 Immature Gran % (Auto) 0.7 % 11/15/23 20:59 Neut % (Auto) 72.4 % 11/15/23 20:59 Lymph % (Auto) 17.9 % 11/15/23 20:59 [place] % (Auto) 6.9 % 11/15/23 20:59 Eos % (Auto) 1.7 % 11/15/23 20:59 Baso % (Auto) 0.4 % 11/15/23 20:59 Neut # (Auto) 11.30 K/uL (1.40-6.50) H 11/15/23 20:59 Lymph # (Auto) 2.79 K/uL (1.20-3.40) 11/15/23 20:59 [place] # (Auto) 1.07 K/uL (0.11-0.59) H 11/15/23 20:59 Eos # (Auto) 0.27 K/uL (0.00-0.50) 11/15/23 20:59 Baso # (Auto) 0.07 K/uL (0.00-0.20) 11/15/23 20:59 Immature Gran # (Auto) 0.11 K/uL (0.01-0.20) 11/15/23 20:59 PT 10.9 Seconds (9.0-12.0) 11/15/23 20:59 INR 1.0 (0.9-1.1) 11/15/23 20:59 Sodium 138 mmol/L (136-145) 11/15/23 20:59 Potassium 3.7 mmol/L (3.5-5.1) 11/15/23 20:59 Chloride 102 mmol/L (98-107) 11/15/23 20:59 Carbon Dioxide 30 mmol/L (21-32) 11/15/23 20:59 Anion Gap 6 (3-11) 11/15/23 20:59 BUN 19 mg/dl (6-23) 11/15/23 20:59 Creatinine 0.87 mg/dl (0.6-1.2) 11/15/23 20:59 Est Cr Clr Drug Dosing 71.4 ml/min 11/15/23 20:59 Est GFR ( Amer) 78.8 ml/min 11/15/23 20:59 Est GFR (Non-Af Amer) 68.0 ml/min 11/15/23 20:59 BUN/Creatinine Ratio 21.8 (10-20) H 11/15/23 20:59 Glucose 106 mg/dl (70-99(Fasting)) H 11/15/23 20:59 Calcium 8.8 mg/dl (8.6-10.3) 11/15/23 20:59 Total Bilirubin 0.7 mg/dl (0.2-1.0) 11/15/23 20:59 AST 13 U/L (13-39) 11/15/23 20:59 ALT 21 U/L (7-52) 11/15/23 20:59 Alkaline Phosphatase 72 U/L (34-104) 11/15/23 20:59 Total Protein 7.1 gm/dl (6.0-8.3) 11/15/23 20:59 Albumin 3.6 gm/dl (3.4-5.0) 11/15/23 20:59 Globulin 3.5 gm/dl (2.5-4.0) 11/15/23 20:59 Albumin/Globulin Ratio 1.0 (0.9-2) 11/15/23 20:59 PG Care Time/CCT Total # of Minutes Spent Total Time Spent with Patient: Total time spent is greater than 50% in coordination of care (as documented) at patient's floor/unit and/or counseling patient: Coding Level of Care Code 74041 INT INP/OBS CARE 255MIN Diagnoses Cellulitis of right lower extremity L03.115 HTN (hypertension) I10 Anxiety and depression F41.9; F32.9 Hypothyroidism E03.9
[2023-11-16] MEDS ORDERED: cloNIDine HCL 0.1 MG TAB PO PRN (00:45)
[2023-11-16] MEDS ORDERED: VANCOMYCIN CONSULT ACTIVE PRN (00:45)
[2023-11-16] MEDS ORDERED: ONDANSETRON INJ 2 MG/ML 2 ML VIAL IV PRN (00:45)
[2023-11-16] MEDS ORDERED: POLYETHYLENE (MIRALAX) 17 GM PACK PO PRN (00:45)
[2023-11-16] MEDS: LEVOTHYROXINE SODIUM 100 MCG TABLET PO SCH (05:56)
[2023-11-16] MEDS: MoRPHine SULFATE 2 MG/ML CARP IV PRN (05:56)
[2023-11-16 07:12] LABS: Hematocrit (blood only) 34.3 % (37.0-47.0); Hemoglobin 11.5 g/dl (12.0-16.0); Mean Corpuscular Hemoglobin 29.9 pg (25.0-34.0); Mean Corpuscular Hgb Conc 33.5 g/dL (32.0-36.0); Mean Corpuscular Volume 89.3 fL (80.0-100.0); Mean Platelet Volume 9.9 fL (9.4-12.4); Platelet Count 302 K/uL (130-400); RDW Coefficient of Variation 13.1 % (11.5-14.5); RDW Standard Deviation 42.3 fL (36.4-46.3); Red Blood Count 3.84 M/uL (4.20-5.40); White Blood Count 13.96 K/ul (4.8-10.8)
[2023-11-16 07:41] LABS: BUN Creatinine Ratio 20.8 (10-20); Calcium 8.7 mg/dl (8.6-10.3); Creatinine Clr Calc Pharmacy 80.1 ml/min; Est GFR (African American) 91.3 ml/min; Est GFR (Non-African American) 78.8 ml/min; Potassium 3.4 mmol/L (3.5-5.1)
[2023-11-16] MEDS: METOPROLOL TARTRATE 100 MG TAB PO SCH (09:09)
[2023-11-16] MEDS: VENLAFAXINE HCL 50 MG TAB PO SCH (09:09)
[2023-11-16] MEDS: VENLAFAXINE HCL XR 150 MG CAPXR PO SCH (09:10)
[2023-11-16] MEDS: buPROPion SR 100 MG TABCR PO SCH (09:11)
[2023-11-16] MEDS: GABAPENTIN 300 MG CAP PO PRN (09:12)
--- NOTE | 2023-11-16 10:38 | Hospitalist Progress Note ---
Date of Service November 16, 2023 Assessment & Plan (1) Cellulitis of right lower extremity: Plan: Patient with purulent cellulitis s/p I/D performed in the ER. She is afebrile, vital signs stable -Wound cultures pending -Monitor area of cellulitis/redness -Continue IV vancomycin while inpatient. Patient may be discharged on Doxycycline for continued treatment of purulent cellulitis pending culture results -PT evaluation for reported ambulatory dysfunction (2) HTN (hypertension): Plan: Blood pressure 160/72 -Pain control -Continue metoprolol (3) Anxiety and depression: Plan: Chronic -Continue Bupropion -Continue Venlafaxine -Continue Clonidine PRN anxiety -Continue Trazodone (4) Hypothyroidism: Plan: Chronic. TSH within normal limits at 3.222 -Continue Synthroid F/E/N - Saline lock. Electrolytes WNL. Heart healthy diet Ppx - Low risk for DVT Code - Full per discussion with patient Dispo - Observation to medical Plan Continue hospitalization, hopefully discharge tomorrow on oral antibiotics Admission and Anticipated Discharge Date Admission Date: November 15, 2023 Subjective Patient seen and examined, denies fevers or chills Review of Systems Review of Systems: All systems reviewed are negative, apart from the ones contained in the history. Physical Exam Physical Exam: The patient is awake, alert and oriented 3, well developed and well nourished, normocephalic and atraumatic, lying in bed and in no acute distress. HEENT--PERRL, EOMI, mucous membranes and oropharynx mildly dry Neck--supple. No JVD. No bruits. Thyroid normal, trachea midline, no adenopathy. Heart--normal S1 and S2. No murmurs, rubs or gallops. Lungs--clear bilaterally, no respiratory distress, no accessory muscle use. Abdomen--normal bowel sounds and soft. Mild epigastric and left sided abdominal pain Extremities--no cyanosis or clubbing. Mild pitting edema Dermatologic--right lower extremity in bandage. Neurologic--cranial nerves II through XII grossly intact. Rheumatologic--normal range of motion. Psychiatric--normal affect. Results & Data Results & Data Vital Signs (Past 12 Hours) Vital Signs Temp Pulse Pulse Resp BP Pulse Ox O2 Del Method 11/16/23 07:26 98.2 F 83 18 160/72 H 95 Room Air 11/16/23 00:25 97.5 F L 70 14 167/63 H 96 Room Air 11/15/23 22:53 68 20 142/72 H 96 Room Air PG Care Time/CCT Total # of Minutes Spent Total Time Spent with Patient: Total time spent is greater than 50% in coordination of care (as documented) at patient's floor/unit and/or counseling patient: Coding Level of Care Code 56775 SUB INP/OBS CARE 2/35MIN Diagnoses Cellulitis of right lower extremity L03.115 HTN (hypertension) I10 Anxiety and depression F41.9; F32.9 Hypothyroidism E03.9 Time Spent (min) 35
[2023-11-16] MEDS: POTASSIUM CHLORIDE CRTAB 20 MEQ TABCR PO STA (11:01)
[2023-11-16] MEDS: VANCOMYCIN HCL 750 MG in SODIUM CHLORIDE 0.9% 250 ML IV SCH (11:01)
--- NOTE | 2023-11-16 11:04 | Pharmacy Report ---
Pharmacy PK ABX Note - Date of Service November 16, 2023 - Assessment and Plan Assessment 68 year old F receiving empiric vancomycin for treatment of right lower extremity cellulitis. Pertinent microbiologic data includes: right leg culture pending (gram positive cocci on gram-stain). Plan is likely to d/c w/ PO antibiotics tomorrow. Day # 1 of antimicrobial therapy. Plan Vancomycin * Loading dose: 2250 mg IV x 1 * Maintenance dose: 750 mg IV every 12 hours * Regimen is predicted to achieve target AUC/MARYSE of 400-600 mg/L.hr * Random level ordered for: 11/18/23 if still inpatient Pharmacy will continue to follow and will adjust dose/frequency as necessary. Thank you. Pharmacy has transitioned to AUC monitoring for vancomycin. AUC/MARYSE is the preferred PK/PD target and is associated with decreased risk of nephrotoxicity compared to traditional trough targets.
[2023-11-16 13:53] LABS: Appearance Urine Clear (Clear); Bilirubin Urine Negative (Negative); Blood Urine Negative (Negative); Color Urine Yellow; Glucose Urine UA Negative (Negative); Ketones Urine Negative (Negative); Leukocyte Esterase Urine Negative (Negative); Nitrite Urine Negative (Negative); Protein Urine Negative (Negative); Specific Gravity Urine 1.013 (1.000-1.030); Urobilinogen Urine Negative (Negative)
--- NOTE | 2023-11-16 15:38 | Magnetic Resonance Report ---
MR lower leg RT wo con CLINICAL HISTORY: r/o osteomyelitis TECHNIQUE: Multisequence, multiplanar MR images of the right lower leg were obtained without contra st COMPARISON: None available at the time of this dictation. FINDINGS: No evidence of acute fracture. No joint effusion is seen. Soft tissue edema is seen in the region of interest. No drainable fluid collection or bony edema is seen. IMPRESSION: Cellulitis without evidence of abscess or osteomyelitis. ACT 112: Negative or not required by law. Electronically signed by: Darrius Chung M.D. 11/16/2023 3:37 PM
[2023-11-16] MEDS: MoRPHine SULFATE 4 MG/ML 1 ML CARP\\VIAL IV PRN (20:30)
[2023-11-16] MEDS: traZODone HCL 100 MG TAB PO SCH (20:30)
[2023-11-17 07:26] LABS: Creatinine Clr Calc Pharmacy 67.8 ml/min; Est GFR (African American) 74.6 ml/min; Est GFR (Non-African American) 64.4 ml/min
[2023-11-17] MEDS: ACETAMINOPHEN 325 MG TAB PO PRN (08:22)
--- NOTE | 2023-11-17 09:14 | Hospitalist Progress Note ---
Date of Service November 17, 2023 Assessment & Plan (1) Cellulitis of right lower extremity: Plan: Patient with purulent cellulitis s/p I/D performed in the ER. She is afebrile, vital signs stable -Wound cultures pending -Monitor area of cellulitis/redness, which is improving -Continue IV vancomycin while inpatient. Patient may be discharged on Doxycycline for continued treatment of purulent cellulitis pending culture results -PT evaluation for reported ambulatory dysfunction -Outpatient follow-up with wound clinic or home with home health and home RN (2) HTN (hypertension): Plan: Blood pressure 150/95 -Pain control -Continue metoprolol, clonidine (3) Anxiety and depression: Plan: Chronic -Continue Bupropion -Continue Venlafaxine -Continue Clonidine PRN anxiety -Continue Trazodone (4) Hypothyroidism: Plan: Chronic. TSH within normal limits at 3.222 -Continue Synthroid F/E/N - Saline lock. Electrolytes WNL. Heart healthy diet Ppx - Low risk for DVT Code - Full per discussion with patient Dispo - Observation to medical Plan Continue hospitalization, hopefully discharge tomorrow on oral antibiotics, may need home health Admission and Anticipated Discharge Date Admission Date: November 16, 2023 Subjective Patient seen and examined, denies fevers or chills, tolerating diet Review of Systems Review of Systems: All systems reviewed are negative, apart from the ones contained in the history. Physical Exam Physical Exam: The patient is awake, alert and oriented 3, well developed and well nourished, normocephalic and atraumatic, lying in bed and in no acute distress. HEENT--PERRL, EOMI, mucous membranes and oropharynx mildly dry Neck--supple. No JVD. No bruits. Thyroid normal, trachea midline, no adenopathy. Heart--normal S1 and S2. No murmurs, rubs or gallops. Lungs--clear bilaterally, no respiratory distress, no accessory muscle use. Abdomen--normal bowel sounds and soft. Mild epigastric and left sided abdominal pain Extremities--no cyanosis or clubbing. Mild pitting edema Dermatologic--right lower extremity in bandage. Neurologic--cranial nerves II through XII grossly intact. Rheumatologic--normal range of motion. Psychiatric--normal affect. Results & Data Results & Data Vital Signs (Past 12 Hours) Vital Signs Temp Pulse Resp BP BP Pulse Ox O2 Del Method 11/17/23 08:00 102 H 20 150/95 H 11/17/23 07:08 98.4 F 85 18 114/64 95 Room Air PG Care Time/CCT Total # of Minutes Spent Total Time Spent with Patient: Total time spent is greater than 50% in coordination of care (as documented) at patient's floor/unit and/or counseling patient: Coding Level of Care Code 20286 SUB INP/OBS CARE 2/35MIN Diagnoses Cellulitis of right lower extremity L03.115 HTN (hypertension) I10 Anxiety and depression F41.9; F32.9 Hypothyroidism E03.9 Time Spent (min) 35
[2023-11-18 07:21] LABS: Hematocrit (blood only) 37.4 % (37.0-47.0); Hemoglobin 12.5 g/dl (12.0-16.0); Mean Corpuscular Hemoglobin 30.5 pg (25.0-34.0); Mean Corpuscular Hgb Conc 33.4 g/dL (32.0-36.0); Mean Corpuscular Volume 91.2 fL (80.0-100.0); Mean Platelet Volume 9.5 fL (9.4-12.4); Platelet Count 299 K/uL (130-400); RDW Coefficient of Variation 13.2 % (11.5-14.5); RDW Standard Deviation 43.1 fL (36.4-46.3); White Blood Count 8.21 K/ul (4.8-10.8)
[2023-11-18 07:30] LABS: Creatinine Clr Calc Pharmacy 79.1 ml/min; Est GFR (African American) 89.9 ml/min; Est GFR (Non-African American) 77.6 ml/min
--- NOTE | 2023-11-18 09:58 | Hospitalist Progress Note ---
Date of Service November 18, 2023 Assessment & Plan (1) Cellulitis of right lower extremity: Plan: Patient with purulent cellulitis s/p I/D performed in the ER. She is afebrile, vital signs stable -Wound cultures growing MRSA -Monitor area of cellulitis/redness, which is improving -Continue IV vancomycin while inpatient for 1 more day -Possibly discharge patient tomorrow on p.o. clindamycin -Outpatient follow-up with wound clinic or home with home health and home RN (2) HTN (hypertension): Plan: Blood pressure 168/92 -Pain control -Continue metoprolol, clonidine (3) Anxiety and depression: Plan: Chronic -Continue Bupropion -Continue Venlafaxine -Continue Clonidine PRN anxiety -Continue Trazodone (4) Hypothyroidism: Plan: Chronic. TSH within normal limits at 3.222 -Continue Synthroid F/E/N - Saline lock. Electrolytes WNL. Heart healthy diet Ppx - Low risk for DVT Code - Full per discussion with patient Dispo - Plan Continue hospitalization, hopefully discharge tomorrow on oral antibiotics, may need home health Admission and Anticipated Discharge Date Admission Date: November 16, 2023 Subjective Patient seen and examined, denies fevers or chills, tolerating diet Review of Systems Review of Systems: All systems reviewed are negative, apart from the ones contained in the history. Physical Exam Physical Exam: The patient is awake, alert and oriented 3, well developed and well nourished, normocephalic and atraumatic, lying in bed and in no acute distress. HEENT--PERRL, EOMI, mucous membranes and oropharynx mildly dry Neck--supple. No JVD. No bruits. Thyroid normal, trachea midline, no adenopathy. Heart--normal S1 and S2. No murmurs, rubs or gallops. Lungs--clear bilaterally, no respiratory distress, no accessory muscle use. Abdomen--normal bowel sounds and soft. Mild epigastric and left sided abdominal pain Extremities--no cyanosis or clubbing. Mild pitting edema Dermatologic--right lower extremity in bandage. Neurologic--cranial nerves II through XII grossly intact. Rheumatologic--normal range of motion. Psychiatric--normal affect. Results & Data Results & Data Vital Signs (Past 12 Hours) Vital Signs Temp Pulse Resp BP Pulse Ox O2 Del Method 11/18/23 08:45 93 H 20 168/92 H 95 Room Air 11/18/23 07:27 98.1 F 84 17 171/94 H 94 Room Air PG Care Time/CCT Total # of Minutes Spent Total Time Spent with Patient: Total time spent is greater than 50% in coordination of care (as documented) at patient's floor/unit and/or counseling patient: Coding Level of Care Code 26939 SUB INP/OBS CARE 2/35MIN Diagnoses Cellulitis of right lower extremity L03.115 HTN (hypertension) I10 Anxiety and depression F41.9; F32.9 Hypothyroidism E03.9 Time Spent (min) 35
--- NOTE | 2023-11-18 10:13 | Pharmacy Report ---
Pharmacy PK ABX Note - Date of Service November 18, 2023 - Assessment and Plan Assessment * 68 year old F receiving vancomycin for treatment of MRSA right lower extremity cellulitis. * Pertinent microbiologic data includes: right leg culture w MRSA * Level of 9.9 mcg/mL associated with a subtherapeutic AUC of 360 mg/L.hr. * Will increase dose and re-check a level in 48 hours Plan Vancomycin * Increase maintenance dose: 1000 mg IV every 12 hours * Regimen is predicted to achieve target AUC/MARYSE of 400-600 mg/L.hr * Random level ordered for: 11/20/23 AM Pharmacy will continue to follow and will adjust dose/frequency as necessary. Thank you. Pharmacy has transitioned to AUC monitoring for vancomycin. AUC/MARYSE is the preferred PK/PD target and is associated with decreased risk of nephrotoxicity compared to traditional trough targets.
[2023-11-18] MEDS: VANCOMYCIN HCL 1,000 MG in SODIUM CHLORIDE 0.9% 250 ML IV SCH (10:45)
[2023-11-19 07:19] LABS: Hematocrit (blood only) 38.3 % (37.0-47.0); Hemoglobin 12.2 g/dl (12.0-16.0); Mean Corpuscular Hemoglobin 29.3 pg (25.0-34.0); Mean Corpuscular Hgb Conc 31.9 g/dL (32.0-36.0); Mean Corpuscular Volume 92.1 fL (80.0-100.0); Mean Platelet Volume 9.6 fL (9.4-12.4); Platelet Count 338 K/uL (130-400); RDW Coefficient of Variation 13.1 % (11.5-14.5); RDW Standard Deviation 43.5 fL (36.4-46.3); Red Blood Count 4.16 M/uL (4.20-5.40)
[2023-11-19 07:47] LABS: Calcium 9.2 mg/dl (8.6-10.3); Creatinine Clr Calc Pharmacy 61.7 ml/min; Est GFR (African American) 66.6 ml/min; Est GFR (Non-African American) 57.4 ml/min; Potassium 4.2 mmol/L (3.5-5.1)
--- NOTE | 2023-11-19 10:55 | Surgery Consultation ---
<Statement entered by Tierney Murphy DO - 11/19/23 19:22> This case was discussed with the surgical PA, I agree with this plan. Date of Consultation November 19, 2023 Assessment & Plan (1) Cellulitis of right lower extremity: Met wound care nurses in patients room Patient reports some pain to right cintron area Post Incision and drainage right cintron with dried blood noted with flatulent nodule Cellulitis receding and showing improvement from marker line Area was cleansed with some saline swabs then the dried blood was removed from incisional area Area expressed some blood and blood clots while a Q tip swab was inserted in the wound Wound care nurses to pack wound with iodoform packing, nursing to follow wound care instructions Patient to continue IV antibiotics until d/c Patient to follow up in wound care clinic outpatient and be d/c on oral antibiotics. Thank you for allowing us to participate in the care of this patient. History of Present Illness Reason for Consultation: Right lower extremity abscess Attending Physician: Noris Tesfaye MD History of Present Illness Patient is a pleasant 68 year old female that presented to the [facility] ER with complaint of Right lower extremity abscess with surrounding cellulitis and pain that had been present for a few days. She was seen by her pcp outpatient 11/14/23 and given oral cephalexin. The patient thought the area was not getting better which promoted her to seek ER care. While in the ER 11/15/23 she underwent an Incision and drainage of right cintron and admitted to the hospitalist service for IV antibiotics and care. General surgery was consulted today to evaluate right cintron abscess. She reports no known injury to right cintron area. Allergies Allergy/AdvReac Type Severity Reaction Status Date / Time pregabalin [From Lyrica] Allergy Mild Rash Verified 11/15/23 22:03 Sulfa (Sulfonamide AdvReac Mild SICK TO Verified 11/15/23 22:03 Antibiotics) STOMACH Home Medications Medication Instructions Recorded Confirmed Type mecobalamin (vitamin B12) 1,000 1,000 mcg PO DAILY 11/13/22 11/15/23 History mcg chewable tablet nabumetone 500 mg tablet 500 mg PO TID 11/13/22 11/15/23 History trazodone 150 mg tablet 300 mg PO HS 04/27/23 11/15/23 History venlafaxine 50 mg tablet 50 mg PO BID #60 tabs 04/30/23 11/15/23 Rx clonidine HCl 0.1 mg tablet 0.2 mg PO BID PRN Anxiety 05/04/23 11/15/23 History bupropion HCl 100 mg tablet,12 hr 100 mg PO DAILY 07/17/23 11/15/23 History sustained-release (Wellbutrin SR) lidocaine 4 % topical patch 1 patch topical DAILY PRN pain #30 07/27/23 11/15/23 Rx (Salonpas (lidocaine)) ea gabapentin 300 mg capsule 300 mg PO TID PRN pain #90 caps 09/25/23 11/15/23 Rx levothyroxine 100 mcg tablet 100 mcg PO DAILY #90 tabs 10/22/23 11/15/23 Rx cephalexin 500 mg capsule 500 mg PO TID #30 caps 11/14/23 11/15/23 Rx metoprolol tartrate 100 mg tablet 100 mg PO QAM #90 tabs 11/14/23 11/15/23 Rx (Lopressor) Patient History Medical History History of anemia Macular degeneration Surgical History History of left cataract surgery History of open reduction and internal fixation (ORIF) procedure LEFT ANKLE (HARDWARE INTACT) History of section X 2 H/O total hysterectomy History of ankle surgery RT History of colonoscopy History of ERCP STENT PLACED IN BILE DUCT (STILL INTACT) History of cholecystectomy History of appendectomy [place] teeth removed History of cardiac cath NO STENTS (DONE [facility] Family History Other Adopted No pertinent family history in first degree relatives Social History Smoking Status: Never smoker Second Hand Exposure: No; Do You Dip or Chew Tobacco: No; Hx Alcohol Use: No Hx Substance Use: No Preferred Language: Greek Communication Ability: Effective Visual Impairment: Limited Hearing Ability: Normal Customer Service Advocate Required: No Beliefs That Will Affect Care: None marital status: Current Living Situation: Alone current occupational status: retired How many Children do You have: 2 Other Information That Helps Us Care for You: No Feels Safe at Home: Yes Safety Concerns: Feels Safe At This Time Childhood Exposure to Second-Hand Smoke: No Diet: regular caffeine: Yes during the past year weight has: remained stable Dental Care, Regularly: No Physical Activity Frequency: Daily Seatbelt Use: always Sunscreen Use: Yes Do you think of yourself as: straight/heterosexual Gender Identity: Female Assistive Devices: Walker Review of Systems Integumentary: + wounds (post right cintron ID 10/15/23) Physical Exam Physical Exam: alert oriented pleasant Respiratory: normal respiratory effort and able to speak in complete sentences Skin: + wound, + erythema and + fluctulance Results & Data Vital Signs (Past 12 Hours) Vital Signs Temp Pulse Resp BP Pulse Ox O2 Del Method 11/19/23 07:22 97.9 F 93 H 18 159/91 H 95 Room Air PG Care Time/CCT Total # of Minutes Spent Total Time Spent with Patient: Total time spent is greater than 50% in coordination of care (as documented) at patient's floor/unit and/or counseling patient: Coding Level of Care Code 46165 IN/OBS CONSULT LVL 2,35M Diagnoses Cellulitis of right lower extremity L03.115
--- NOTE | 2023-11-19 15:28 | Hospitalist Progress Note ---
Date of Service November 19, 2023 Assessment & Plan (1) Cellulitis of right lower extremity: Plan: Patient with purulent cellulitis s/p I/D performed in the ER. She is afebrile, vital signs stable -Wound cultures growing MRSA -Monitor area of cellulitis/redness, which is improving -Continue IV vancomycin An area of fluctuance is noted in the area of the incision and drainage. General surgery consulted for possible I&D. -Possibly discharge patient tomorrow on p.o. clindamycin -Outpatient follow-up with wound clinic or home with home health and home RN (2) HTN (hypertension): Plan: Blood pressure stable -Pain control -Continue metoprolol, clonidine (3) Anxiety and depression: Plan: Chronic -Continue Bupropion -Continue Venlafaxine -Continue Clonidine PRN anxiety -Continue Trazodone (4) Hypothyroidism: Plan: Chronic. TSH within normal limits at 3.222 -Continue Synthroid Ppx - Low risk for DVT Code - Full per discussion with patient Plan Continue hospitalization, hopefully discharge tomorrow on oral antibiotics, may need home health Admission and Anticipated Discharge Date Admission Date: November 16, 2023 Subjective Patient feels well. Tender spot of the right lower extremity noted. No fever. Review of Systems Review of Systems: All systems reviewed & are unremarkable except as noted in Subjective Physical Exam Physical Exam: General: Awake, conversant Heart: S1, S2/regular rate and rhythm, no murmur rubs or gallops Lungs: Clear to auscultation bilaterally. Normal effort Abdomen: Soft/nontender/nondistended. No hepatosplenomegaly Extremities: No clubbing/cyanosis. No edema Behavior: Appropriate, cooperative Results & Data Results & Data Vital Signs (Past 12 Hours) Vital Signs Temp Pulse Resp BP Pulse Ox O2 Del Method 11/19/23 14:06 36.8 C 95 H 18 139/85 95 Room Air 11/19/23 07:22 36.6 C 93 H 18 159/91 H 95 Room Air Laboratory Results Abnormal lab results 11/19/23 Range/Units 06:39 RBC 4.16 L (4.20-5.40) M/uL MCHC 31.9 L (32.0-36.0) g/dL Glucose 116 H (70-99(Fasting)) mg/dl PG Care Time/CCT Total # of Minutes Spent Total Time Spent with Patient: Total time spent is greater than 50% in coordination of care (as documented) at patient's floor/unit and/or counseling patient: Coding Level of Care Code 14549 SUB INP/OBS CARE 2MIN Diagnoses Cellulitis of right lower extremity L03.115 HTN (hypertension) I10 Anxiety and depression F41.9; F32.9 Hypothyroidism E03.9
[2023-11-19] MEDS: oxyCODONE HCL IR 5 MG TAB (IMMEDIATE RELEASE) PO PRN (16:22)
[2023-11-19 19:50] VITALS: O2SAT 94
[2023-11-20 06:00] LABS: Creatinine Clr Calc Pharmacy 59.9 ml/min; Est GFR (African American) 64.2 ml/min; Est GFR (Non-African American) 55.4 ml/min
--- NOTE | 2023-11-20 07:06 | Pharmacy Report ---
Pharmacy PK ABX Note - Date of Service November 20, 2023 - Assessment and Plan Assessment * 68 year old F receiving vancomycin for treatment of MRSA right lower extremity cellulitis. * Pertinent microbiologic data includes: right leg culture w MRSA * Level of 14.9 mcg/mL today is therapeutic. Plan Vancomycin * Continue with 1000 mg IV every 12 hours * Regimen is predicted to achieve target AUC/MARYSE of 400-600 mg/L.hr * Random level ordered for: 11/22/23 AM Pharmacy will continue to follow and will adjust dose/frequency as necessary. Thank you. Pharmacy has transitioned to AUC monitoring for vancomycin. AUC/MARYSE is the preferred PK/PD target and is associated with decreased risk of nephrotoxicity compared to traditional trough targets.
[2023-11-20 07:41] VITALS: BP 146/91; PULSE 105; RESP 18; TEMP 98.1
--- NOTE | 2023-11-20 10:55 | Discharge Summary ---
Date of Service November 20, 2023 Admission HPI Per Admitting Provider Agnieszka Manley is a 68yo female with history of hypertension presenting with RLE cellulitis. Patient reports redness and pain of her RLE that started on 11/11/23. She does not recall any trauma or skin breaks or bites. She had progression of redness and pain and was seen by her PCP on 11/14/23. She was noted to have cellulitis and was started on Cephalexin 500mg po TID. She has been taking her medication without difficulty but has continue to have redness and pain. Over the last day she has had increased difficulty walking and has been using her walker at home. In the ER she is afebrile HD stable, NAD Patient was noted to have an area of fluctuance on her anterior leg and a bedside ultrasound showed a clear subcutaneous fluid collection. A bedside I/D was performed by ER attending and the area was cleaned and dressed. Patient overall doing well. Reports that pain has improved. No additional complaints at this time - she denies fever, chills, nausea, vomiting, diarrhea, constipation, cough, CP ER Course: Vancomycin Ceftriaxone Toradol 10mg IV Fentanyl 50mcg IV x 2 Principal Diagnosis Right lower extremity cellulitis with abscess status post I&D Discharge Exam General: Awake, conversant Heart: S1, S2/regular rate and rhythm, no murmur rubs or gallops Lungs: Clear to auscultation bilaterally. Normal effort Abdomen: Soft/nontender/nondistended. No hepatosplenomegaly Extremities: No clubbing/cyanosis. No edema. Right lower extremity cellulitis has improved Behavior: Appropriate, cooperative Discharge Data Allergies Allergy/AdvReac Type Severity Reaction Status Date / Time pregabalin [From Lyrica] Allergy Mild Rash Verified 11/15/23 22:03 Sulfa (Sulfonamide AdvReac Mild SICK TO Verified 11/15/23 22:03 Antibiotics) STOMACH Consultations 11/15/23 22:28 ED Decision to Admit Stat 11/19/23 10:09 Consult General Surgery Routine Ordered Studies 11/16/23 11:10 MR lower leg RT wo con Routine Hospital Course (1) Cellulitis of right lower extremity: Patient with purulent cellulitis s/p I/D performed in the ER. She is afebrile, vital signs stable -Wound cultures growing MRSA -Monitor area of cellulitis/redness, which is improving -Continue IV vancomycin An area of fluctuance is noted in the area of the incision and drainage. General surgery consulted who did not recommend further I&D Discharged on p.o. clindamycin Home health arranged for wound care (2) HTN (hypertension): Blood pressure stable -Pain control -Continue metoprolol, clonidine (3) Anxiety and depression: Chronic -Continue Bupropion -Continue Venlafaxine -Continue Clonidine PRN anxiety -Continue Trazodone (4) Hypothyroidism: Chronic. TSH within normal limits at 3.222 -Continue Synthroid Plan Discharge to home on oral clindamycin Total Time Total Time Spent Total Time Spent (In Minutes): 35 Discharge Plan Discharge Items Patient Disposition: Home - Home Health Services Reason For Visit: RLE CELLULITIS Discharge Diagnosis: Right lower extremity cellulitis with abscess status post I&D Activity: Resume your previous activity Non-emergency contact: Primary Care Provider Call non-emergency contact if: you have any medication questions and your symptoms worsen Follow-up/Referrals: Pernell Hester DO [Primary Care Provider] - 11/23/23 10:30 am Diet: Heart Healthy Addtl Attending Provider Instructions: Advised to follow-up with PCP in 1 week Pending Studies at Discharge: No Stand-Alone Forms: My [facility] Medications and DC Order Prescriptions: New clindamycin HCl 300 mg capsule 300 mg PO BID 3 Days Qty: 6 0RF Continued venlafaxine 50 mg tablet 50 mg PO BID Qty: 60 2RF Rx Instructions: pt not really sure of dose after dc from [facility]- increased per her Psych md. PLEASE VERIFY clonidine HCl 0.1 mg tablet 0.2 mg PO BID PRN (Reason: Anxiety) Rx Instructions: DC [facility] increased by Psych. lidocaine [Salonpas (lidocaine)] 4 % adhesive patch,medicated 1 patch topical DAILY PRN (Reason: pain) Qty: 30 5RF gabapentin 300 mg capsule 300 mg PO TID PRN (Reason: pain) Qty: 90 5RF levothyroxine 100 mcg tablet 100 mcg PO DAILY Qty: 90 3RF mecobalamin (vitamin B12) 1,000 mcg tablet,chewable 1,000 mcg PO DAILY nabumetone 500 mg tablet 500 mg PO TID bupropion HCl [Wellbutrin SR] 100 mg tablet sustained-release 12 hr 100 mg PO DAILY metoprolol tartrate [Lopressor] 100 mg tablet 100 mg PO QAM Qty: 90 3RF trazodone 150 mg tablet 300 mg PO HS Discontinued cephalexin 500 mg capsule 500 mg PO TID Qty: 30 0RF Discharge Orders: Discharge Order (Routine); Ordered 11/20/23 Ordered By: Noris Tesfaye Admission Data Admit Date/Time: 11/16/23 13:55 Attending Provider: Noris Tesfaye Admit Provider: Mabel Hernandez Primary Care Provider: Pernell Hester Other Providers: Mabel Hernandez; Tierney Murphy; [place] Other Interventions: Discharge Summary Assessment (RN) Last Done: 11/20/23 12:00 Coding Level of Care Code 42088 INP/OBS DISCH >30 MIN Diagnoses Cellulitis of right lower extremity L03.115 HTN (hypertension) I10 Anxiety and depression F41.9; F32.9 Hypothyroidism E03.9
== END 2023-11-20 13:50 | disposition home health service (06) | DRG 603 ==
LOC: 3W 20:47 → ED 20:47 → SUATTDRO 23:15 → 3W 11-16 00:12 → SUATTDRO 11-16 13:55

== ENCOUNTER 2024-05-10 11:45 | Observation (INO) ==
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
--- NOTE | 2024-05-10 13:28 | Emergency Department Note ---
ED Visit Note I was consulted by the Advanced Practice Provider, Nato Manning PA-C. I personally made/approved the management plan and take responsibility for the patient management. I performed a substantive portion of the visit. This includes the aspects of: -History/Physical/Personally seeing the patient -MDM .
[2024-05-10 13:31] LABS: Basophils # (auto) 0.05 K/uL (0.00-0.20); Basophils % (auto) 0.6 %; Eosinophils # (auto) 0.25 K/uL (0.00-0.50); Hematocrit (blood only) 35.1 % (37.0-47.0); Hemoglobin 11.6 g/dl (12.0-16.0); Immature Granulocytes # (auto) 0.03 K/uL (0.01-0.20); Immature Granulocytes % (auto) 0.4 %; Lymphocytes % (auto) 23.9 %; Mean Corpuscular Hemoglobin 30.2 pg (25.0-34.0); Mean Corpuscular Volume 91.4 fL (80.0-100.0); Mean Platelet Volume 10.2 fL (9.4-12.4); Monocytes # (auto) 0.58 K/uL (0.11-0.59); Monocytes % (auto) 6.9 %; Neutrophils # (auto) 5.45 K/uL (1.40-6.50); Neutrophils % (auto) 65.2 %; Platelet Count 288 K/uL (130-400); RDW Coefficient of Variation 13.6 % (11.5-14.5); RDW Standard Deviation 45.6 fL (36.4-46.3); Red Blood Count 3.84 M/uL (4.20-5.40); White Blood Count 8.36 K/ul (4.8-10.8)
[2024-05-10 13:49] LABS: Alanine Aminotransferase 15 U/L (7-52); Albumin Globulin Ratio 1.1 (0.9-2); Albumin Level 3.9 gm/dl (3.4-5.0); Alkaline Phosphatase 68 U/L (34-104); Anion Gap 4 (3-11); Aspartate Aminotransferase 14 U/L (13-39); BUN Creatinine Ratio 25.6 (10-20); Bilirubin,Total 0.5 mg/dl (0.2-1.0); Blood Urea Nitrogen 34 mg/dl (6-23); Calcium 9.5 mg/dl (8.6-10.3); Carbon Dioxide 28 mmol/L (21-32); Chloride 106 mmol/L (98-107); Creatinine Clr Calc Pharmacy 48.2 ml/min; Est GFR (African American) 47.2 ml/min; Est GFR (Non-African American) 40.7 ml/min; Globulin 3.5 gm/dl (2.5-4.0); Glucose 110 mg/dl (70-99(Fasting)); Magnesium 2.3 mg/dl (1.7-2.4); Potassium 4.7 mmol/L (3.5-5.1); Sodium 138 mmol/L (136-145); Total Protein 7.4 gm/dl (6.0-8.3)
[2024-05-10 13:55] LABS: Troponin I High Sensitivity < 2.3 pg/ml (0-14)
--- NOTE | 2024-05-10 13:55 | CT Scan Report ---
CT head/brain wo con CLINICAL HISTORY: 68 years-old Female with frequent falls. Acute head trauma status post fall TECHNIQUE: Multiple axial CT images of the head were obtained without contrast. A dose lowering tech nique was utilized adhering to the principles of ALARA. CT DOSE: 547.75 mGy.cm COMPARISON: 01/04/2016. FINDINGS: No acute intracranial hemorrhage, midline shift, intracranial mass, hydrocephalus, territorial ischem ia or abnormal extra-axial collection. Progressively worsened involutional changes with white matter hypodensities suggestive of chronic microvascular ischemic disease. Calcifications of the falx cerebr i. Cerebral vascular calcifications. The calvarium is intact. The paranasal sinuses, mastoid air cells, and middle ear cavities are clear . IMPRESSION: No acute intracranial abnormality or calvarial fracture. ACT 112: Negative or not required by law. The above report was generated using voice recognition software. It may contain grammatical, syntax o r spelling errors. Electronically signed by: Marlon Cantu M.D. 05/10/2024 1:53 PM
[2024-05-10] MEDS: SODIUM CHLORIDE 0.9% 500 ML IV ONE (13:57)
[2024-05-10 15:44] LABS: Appearance Urine Clear (Clear); Bacteria Urine Automated 1+ (None Seen); Bilirubin Urine Negative (Negative); Blood Urine Negative (Negative); Color Urine Dark Yellow; Glucose Urine UA Negative (Negative); Ketones Urine Trace (Negative); Leukocyte Esterase Urine Trace (Negative); Nitrite Urine Negative (Negative); Protein Urine Negative (Negative); RBC Urine Automated 0-2 /hpf (0-2); Specific Gravity Urine 1.033 (1.000-1.030); Urobilinogen Urine Negative (Negative); WBC Urine Automated 0-5 /hpf (0-5); pH Urine 5.5 (4.5-7.5)
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
--- NOTE | 2024-05-10 17:07 | XRay Report ---
XR chest 1V portable HISTORY: 68 years-old Female multiple falls today acute chest trauma status post fall COMPARISON: 04/27/2023 TECHNIQUE: AP view the chest FINDINGS: Cardiac silhouette is enlarged. Lungs appear clear. No pneumothorax or pleural effusion. The bones ap pear intact. IMPRESSION: Cardiomegaly without acute process. ACT 112: Negative or not required by law. The above report was generated using voice recognition software. It may contain grammatical, syntax o r spelling errors. Electronically signed by: Marlon Cantu M.D. 05/10/2024 5:06 PM
[2024-05-10 17:08] LABS: Phosphorus 3.6 mg/dl (2.5-4.9)
[2024-05-10 17:24] LABS: Thyroid Stimulating Hormone 3.534 uIu/ml (0.300-4.500)
[2024-05-10 17:28] LABS: Folate (Folic Acid),Ser orPlas 15.04 ng/ml (>5.38)
[2024-05-10 17:29] LABS: Vitamin B12 > 1500 pg/ml (180-914)
[2024-05-10] MEDS: LACTATED RINGER'S 500 ML IV ONE (17:45)
[2024-05-10] MEDS ORDERED: busPIRone 15 MG TAB PO PRN (19:33)
--- NOTE | 2024-05-10 20:48 | Electrocardiogram Report ---
Test Reason : Blood Pressure : / mmHG Vent. Rate : 069 BPM Atrial Rate : 069 BPM P-R Int : 202 ms QRS Dur : 100 ms QT Int : 422 ms P-R-T Axes : 028 -18 -11 degrees QTc Int : 452 ms Normal sinus rhythm Low voltage QRS Incomplete right bundle branch block Nonspecific T wave abnormality Abnormal ECG When compared with ECG of 28-APR-2023 06:22, Incomplete right bundle branch block is now Present Confirmed by Harshil Teixeira ([id number]) on 05/10/2024 8:48:32 PM Referred By: REFERRED SELF Confirmed By:Harshil Teixeira
[2024-05-10] MEDS: buPROPion SR 100 MG TABCR PO SCH (21:21)
[2024-05-10] MEDS: DOXEPIN HCL 75 MG CAPSULE PO SCH (21:21)
[2024-05-10] MEDS: HEPARIN SOD 5,000 UNIT/0.5 ML VIAL SQ SCH (21:21)
[2024-05-11] MEDS: HYDROCODONE/ACETAMOPHEN 5/325MG TAB PO PRN (05:07)
[2024-05-11] MEDS: LEVOTHYROXINE SODIUM 100 MCG TABLET PO SCH (05:07)
[2024-05-11 06:11] LABS: Basophils # (auto) 0.05 K/uL (0.00-0.20); Basophils % (auto) 0.7 %; Eosinophils # (auto) 0.37 K/uL (0.00-0.50); Hematocrit (blood only) 35.3 % (37.0-47.0); Hemoglobin 11.6 g/dl (12.0-16.0); Immature Granulocytes # (auto) 0.02 K/uL (0.01-0.20); Immature Granulocytes % (auto) 0.3 %; Lymphocytes # (auto) 2.72 K/uL (1.20-3.40); Lymphocytes % (auto) 36.7 %; Mean Corpuscular Hemoglobin 29.9 pg (25.0-34.0); Mean Corpuscular Hgb Conc 32.9 g/dL (32.0-36.0); Mean Platelet Volume 10.2 fL (9.4-12.4); Monocytes # (auto) 0.55 K/uL (0.11-0.59); Monocytes % (auto) 7.4 %; Neutrophils % (auto) 49.9 %; Platelet Count 262 K/uL (130-400); RDW Coefficient of Variation 13.4 % (11.5-14.5); RDW Standard Deviation 44.5 fL (36.4-46.3); Red Blood Count 3.88 M/uL (4.20-5.40); White Blood Count 7.41 K/ul (4.8-10.8)
[2024-05-11 06:39] LABS: Albumin Level 3.6 gm/dl (3.4-5.0); Calcium 8.9 mg/dl (8.6-10.3); Magnesium 2.1 mg/dl (1.7-2.4); Potassium 4.1 mmol/L (3.5-5.1)
[2024-05-11 06:46] LABS: Creatinine Clr Calc Pharmacy 64.3 ml/min; Est GFR (African American) 68.2 ml/min; Est GFR (Non-African American) 58.9 ml/min
[2024-05-11] MEDS: METOPROLOL TARTRATE 100 MG TAB PO SCH (07:13)
[2024-05-11] MEDS: VENLAFAXINE HCL XR 150 MG CAPXR PO SCH (07:13)
[2024-05-11] MEDS: ACETAMINOPHEN 325 MG TAB PO PRN (10:23)
[2024-05-11 10:37] LABS: Albumin Globulin Ratio 1.1 (0.9-2); BUN Creatinine Ratio 27.6 (10-20); Bilirubin,Total 0.4 mg/dl (0.2-1.0); Globulin 3.3 gm/dl (2.5-4.0); Total Protein 6.9 gm/dl (6.0-8.3)
--- NOTE | 2024-05-11 22:28 | Hospitalist Progress Note ---
Date of Service May 11, 2024 Assessment & Plan (1) Ambulatory dysfunction: Plan: Admit to [facility] Currently stable, nontoxic-appearing, and without trauma from her recent falls Patient presented to the ED today due to concerns for ongoing falls while ambulating with a walker Patient reports that her bilateral lower extremities will suddenly give out on her, denies any prodromal symptoms to suggest cardiac or neurologic pathology at this time Patient did not hit her head or lose consciousness, no acute trauma on exam CT of the head and brain without contrast were negative for acute findings Will obtain chest x-ray to monitor for signs of trauma with multiple falls today Suspect her recurrent falls are due progressive functional decline, morbid obesity, and her macular degeneration -ordered tick borne ilnness, this was negative. WIll consider neurology consult given bilateral lower extremity weakness. (2) Hypothyroidism: Plan: Will obtain TSH with free T4 if required Continue levothyroxine (3) HTN (hypertension): Plan: Currently stable continue metoprolol Admission and Anticipated Discharge Date Admission Date: May 10, 2024 Subjective 68 yo female reports havign a cramp in her left leg, and still having bilateral leg weakness. Review of Systems Review of Systems: All systems reviewed & are unremarkable except as noted in HPI & below Physical Exam Physical Exam: General: In no acute distress, stated age, morbidly obese, non-toxic appearing HEENT: Normocephalic, atraumatic, no scleral icterus, pupils around round, symmetrical, and reactive to light, dry mucus membranes, trachea midline, no thyromegaly Chest/Pulm: No respiratory distress, symmetrical chest expansion, clear breath sounds throughout Cardiac: RRR, no murmurs noted Abdomen: Negative for ascites and bruising, normoactive bowel sounds, soft, non-tender to palpation throughout Musculoskeletal: Symmetrical and without signs of acute trauma, upper and lower extremities with full ROM, no atrophy, spasticity, or flaccidity >No pain with palpation of the BL hips Extremities: Radial, dorsalis pedis, and posterior tibial pulses are intact and symmetrical, no edema noted in the BL LE's Skin: Warm, dry, no rashes , lesions, or scars noted Neuro: Alert and oriented to person, place, month, year, and president, no focal defects, CN II-XII tested and intact (besdies decreased vision in the BL eyes with right >left), no tremors noted Psych: No acute distress, calm and cooperative during the exam Results & Data Results & Data Vital Signs (Past 12 Hours) Vital Signs Temp Pulse Resp BP Pulse Ox O2 Del Method 05/11/24 19:45 36.7 C 70 18 163/86 H 96 Room Air 05/11/24 15:19 36.8 C 64 18 161/81 H 96 Room Air 05/11/24 10:48 152/89 H PG Care Time/CCT Total # of Minutes Spent Total Time Spent with Patient: Total time spent is greater than 50% in coordination of care (as documented) at patient's floor/unit and/or counseling patient: Coding Level of Care Code 39326 SUB INP/OBS CARE 2/35MIN Diagnoses Ambulatory dysfunction R26.2 Hypothyroidism E03.9 HTN (hypertension) I10
[2024-05-12 05:52] LABS: Basophils # (auto) 0.05 K/uL (0.00-0.20); Basophils % (auto) 0.7 %; Eosinophils # (auto) 0.31 K/uL (0.00-0.50); Eosinophils % (auto) 4.5 %; Hematocrit (blood only) 34.8 % (37.0-47.0); Hemoglobin 11.7 g/dl (12.0-16.0); Immature Granulocytes # (auto) 0.02 K/uL (0.01-0.20); Immature Granulocytes % (auto) 0.3 %; Lymphocytes # (auto) 2.27 K/uL (1.20-3.40); Lymphocytes % (auto) 33.1 %; Mean Corpuscular Hemoglobin 30.1 pg (25.0-34.0); Mean Corpuscular Hgb Conc 33.6 g/dL (32.0-36.0); Mean Corpuscular Volume 89.5 fL (80.0-100.0); Monocytes % (auto) 7.3 %; Neutrophils # (auto) 3.71 K/uL (1.40-6.50); Neutrophils % (auto) 54.1 %; Platelet Count 277 K/uL (130-400); RDW Coefficient of Variation 13.2 % (11.5-14.5); Red Blood Count 3.89 M/uL (4.20-5.40); White Blood Count 6.86 K/ul (4.8-10.8)
[2024-05-12 06:05] LABS: Albumin Globulin Ratio 1.1 (0.9-2); Albumin Level 3.7 gm/dl (3.4-5.0); BUN Creatinine Ratio 17.7 (10-20); Bilirubin,Total 0.4 mg/dl (0.2-1.0); Calcium 9.4 mg/dl (8.6-10.3); Creatinine Clr Calc Pharmacy 55.8 ml/min; Est GFR (African American) 57.4 ml/min; Est GFR (Non-African American) 49.6 ml/min; Globulin 3.5 gm/dl (2.5-4.0); Magnesium 2.1 mg/dl (1.7-2.4); Potassium 3.9 mmol/L (3.5-5.1); Total Protein 7.2 gm/dl (6.0-8.3)
[2024-05-12 06:14] LABS: Prothrombin Time 11.2 Seconds (9.0-12.0)
--- NOTE | 2024-05-12 10:06 | Neurology Consultation ---
Date of Consultation May 12, 2024 Assessment & Plan (1) Ambulatory dysfunction: History of Present Illness Attending Physician: Niranjan Cabrera History of Present Illness pt this morning doing well. not much issue. she did walk with walker with assistance from therapy today. she does complain rt hip pain (chronic) and radiating down to her ankle. no new weakness. she does admits having b/l knee pain and b/l hip arthritis chronically. she states her legs would just give out without reason. no clear prior issues per pt. no suggestion of fatiguable weakness. pt does have morbid obesity and joint arthritis for chronically. no muscle change otherwise. chart reviewed. admission HPI: Agnieszka is a 68-year-old female with a past medical history significant for hypertension, hypothyroidism, anxiety/depression, morbid obesity, and recurrent falls who presented to the [facility] ED on 05/10/2024 after she had a fall while at [place] this morning. She remained stable in the ED. Labs were significant for a mildly elevated creatinine of 1.33 (baseline is near 1.0). CT of the head without contrast was read as negative for acute findings. Prior to admission the patient was given a 500 mL fluid bolus. We are asked to admit the patient for rehab placement. Patient was sitting in bed in no acute distress at time of exam. She states that she had 2 falls while ambulating today. The first occurred while walking in the parking lot of a local grocery store. She states that she was feeling fine and then her bilateral lower extremities suddenly gave out on her. [facility]cond [facility] She describes the same situation as the first fall today. She landed on her bilateral knees during the first fall and landed on her buttocks on the second fall. Denies hitting her head or losing consciousness during both. Denies symptoms such as lightheadedness/dizziness, shortness of breath, chest pain, palpitations, paresthesias, unilateral weakness prior to the falls. States that she has had multiple similar episodes over the past 6 months. Previous falls are similar to these falls that happened today. No recent fever, chills, chest pain, shortness of breath, cough, nausea/vomiting, dysuria, hematuria, diarrhea, melena, lower extremity swelling. She is currently without any pain from her recent falls. When asked, she states that she has macular degeneration in the right eye which causes significant vision loss. States that she has tried to wear a patch over the right eye, unfortunately the vision unilateral left eye is also poor. She denies tripping on prior to her falls and states again that her legs just "give out". She is in agreement with inpatient rehab at the time of discharge to try and build her strength and prevent recurrent falls as she has already been ambulating with her walker which has not been recurrent falls. She wishes to be full code and for her son to make medical decisions for her if she cannot make them herself. Allergies Allergy/AdvReac Type Severity Reaction Status Date / Time pregabalin [From Lyrica] Allergy Mild Rash Verified 05/10/24 17:14 Sulfa (Sulfonamide AdvReac Mild SICK TO Verified 05/10/24 17:14 Antibiotics) STOMACH Home Medications Medication Instructions Recorded Confirmed Type mecobalamin (vitamin B12) 1,000 1,000 mcg PO QAM 11/13/22 05/10/24 History mcg chewable tablet nabumetone 500 mg tablet 500 mg PO TID 11/13/22 05/10/24 History metoprolol tartrate 100 mg tablet 100 mg PO QAM #90 tabs 11/14/23 05/10/24 Rx (Lopressor) gabapentin 300 mg capsule 300 - 600 mg (1 - 2 x 300 mg) PO 12/05/23 05/10/24 Rx TID PRN pain #180 caps buspirone 15 mg tablet 15 mg PO BID PRN anxiety #180 tabs 01/02/24 05/10/24 Rx hydrocodone 5 mg-acetaminophen 325 0.5 - 1 tab PO BID PRN pain #60 05/09/24 05/10/24 Rx mg tablet tabs bupropion HCl 100 mg tablet,12 hr 100 mg PO BID 05/10/24 05/10/24 History sustained-release clonidine HCl 0.2 mg tablet 0.2 mg PO TID PRN Anxiety 05/10/24 05/10/24 History doxepin 150 mg capsule 150 mg PO HS 05/10/24 05/10/24 History levothyroxine 100 mcg tablet 100 mcg PO DAILYBB 05/10/24 05/10/24 History venlafaxine 150 mg 150 mg PO QAM 05/10/24 05/10/24 History capsule,extended release 24 hr Patient History Medical History History of anemia Macular degeneration Surgical History History of left cataract surgery History of open reduction and internal fixation (ORIF) procedure LEFT ANKLE (HARDWARE INTACT) History of section X 2 H/O total hysterectomy History of ankle surgery RT History of colonoscopy History of ERCP STENT PLACED IN BILE DUCT (STILL INTACT) History of cholecystectomy History of appendectomy [place] teeth removed History of cardiac cath NO STENTS (DONE [facility]") Family History Other Adopted No pertinent family history in first degree relatives Social History Smoking Status: Never smoker Second Hand Exposure: No; Do You Dip or Chew Tobacco: No; Hx Alcohol Use: No Hx Substance Use: No Preferred Language: Icelandic Communication Ability: Effective Visual Impairment: Limited Hearing Ability: Normal Senior Network Administrator Required: No Beliefs That Will Affect Care: None marital status: Current Living Situation: Alone current occupational status: retired How many Children do You have: 2 Feels Safe at Home: Yes Safety Concerns: Feels Safe At This Time Childhood Exposure to Second-Hand Smoke: No Diet: regular caffeine: Yes during the past year weight has: remained stable Dental Care, Regularly: No Physical Activity Frequency: Daily Seatbelt Use: always Sunscreen Use: Yes Do you think of yourself as: straight/heterosexual Gender Identity: Female Assistive Devices: None Exam (Neuro) Physical Exam: HEENT: normocephalic grossly Neuro: Mental: AOx4, fluent speech, normal comprehension, no apraxia, no L/R confusion, no neglect CN: PERRL, Full EOM, symmetric face, midline T/U/P, grossly full ROM neck Motor: No abnormal movements, normal tone, 5/5 t/o bilaterally upper limbs, 4+/5 hip flexion, 5-/5 knee extension, 5/5 distal foot dorsiflexion/plantarflexion. rt foot with large dorsum bruised area. Sens: intact to touch b/l grossly Coord: intact FNT b/l DTR: 1+ sym b/l Impression: 68 yo female with overall picture suggestive of mechanical fall from joint dysfunction in setting of morbid obesity and arthritis and deconditioning. 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 Recommendations: supportive care with weight loss and improvement of overall conditioning. physical therapy as now and agree she will need rehab. likely will benefit from seeing PM&R medicine as outpt. not much to offer from neurology at this point. call again if new question. Chart reviewed I have spent more than 50% educating patient about potential diagnosis and neurological evaluation and coordinating care with patient's treatment team. Total time spent (including chart review and coordination of care): 60 min (this includes chart review). Results & Data Vital Signs (Past 12 Hours) Vital Signs Temp Pulse Pulse Resp BP Pulse Ox O2 Del Method 05/12/24 08:04 92 H 15 155/99 H 95 Room Air 05/12/24 08:03 36.7 C 92 H 15 155/99 H 95 Room Air 05/12/24 08:00 Room Air 05/12/24 07:04 36.6 C 78 16 156/90 H 94 Room Air PG Care Time/CCT Total # of Minutes Spent Total Time Spent with Patient: Total time spent is greater than 50% in coordination of care (as documented) at patient's floor/unit and/or counseling patient: Coding Level of Care Code 26295 IN/OBS CONSULT LVL 4,60M Diagnoses Ambulatory dysfunction R26.2
[2024-05-12] MEDS: ONDANSETRON INJ 2 MG/ML 2 ML VIAL IV PRN (16:32)
--- NOTE | 2024-05-12 22:04 | Hospitalist Progress Note ---
Date of Service May 12, 2024 Assessment & Plan (1) Ambulatory dysfunction: Plan: Admit to [facility] Currently stable, nontoxic-appearing, and without trauma from her recent falls Patient presented due to concerns for ongoing falls while ambulating with a walker Patient reports that her bilateral lower extremities will suddenly give out on her, denies any prodromal symptoms to suggest cardiac or neurologic pathology at this time Patient did not hit her head or lose consciousness, no acute trauma on exam CT of the head and brain without contrast were negative for acute findings Suspect her recurrent falls are due progressive functional decline, morbid obesity, and her macular degeneration -ordered tick borne serology, this was negative. consulted neurology: Not suggestive of NMJ disorder or does not localize to COMMERCIAL ANALYST or spine. (2) Hypothyroidism: Plan: Will obtain TSH with free T4 if required Continue levothyroxine (3) HTN (hypertension): Plan: Currently stable continue metoprolol Admission and Anticipated Discharge Date Admission Date: May 10, 2024 Subjective Patient reports having nausea after taking hydrocodone. Patient reports feeling weak. Review of Systems Review of Systems: All systems reviewed & are unremarkable except as noted in HPI & below Physical Exam Physical Exam: General: In no acute distress HEENT: Normocephalic, atraumatic Chest/Pulm: clear breath sounds throughout Cardiac: RRR, no murmurs noted Abdomen: Negative for ascites and bruising, normoactive bowel sounds, soft, non-tender to palpation throughout Results & Data Results & Data Vital Signs (Past 12 Hours) Vital Signs Temp Pulse Pulse Resp BP Pulse Ox O2 Del Method 05/12/24 20:54 36.7 C 94 H 20 150/85 H 96 Room Air 05/12/24 15:13 36.7 C 69 16 162/99 H 96 Room Air 05/12/24 12:11 36.6 C 88 14 146/84 H 96 Room Air PG Care Time/CCT Total # of Minutes Spent Total Time Spent with Patient: Total time spent is greater than 50% in coordination of care (as documented) at patient's floor/unit and/or counseling patient: Coding Level of Care Code 42588 SUB INP/OBS CARE 2/35MIN Diagnoses Ambulatory dysfunction R26.2 Hypothyroidism E03.9 HTN (hypertension) I10
[2024-05-13 06:40] LABS: Basophils # (auto) 0.04 K/uL (0.00-0.20); Basophils % (auto) 0.5 %; Eosinophils # (auto) 0.24 K/uL (0.00-0.50); Eosinophils % (auto) 2.8 %; Hematocrit (blood only) 36.4 % (37.0-47.0); Hemoglobin 12.3 g/dl (12.0-16.0); Immature Granulocytes # (auto) 0.02 K/uL (0.01-0.20); Immature Granulocytes % (auto) 0.2 %; Lymphocytes # (auto) 2.06 K/uL (1.20-3.40); Lymphocytes % (auto) 23.9 %; Mean Corpuscular Hemoglobin 30.4 pg (25.0-34.0); Mean Corpuscular Hgb Conc 33.8 g/dL (32.0-36.0); Mean Corpuscular Volume 89.9 fL (80.0-100.0); Mean Platelet Volume 9.8 fL (9.4-12.4); Monocytes # (auto) 0.68 K/uL (0.11-0.59); Monocytes % (auto) 7.9 %; Neutrophils # (auto) 5.58 K/uL (1.40-6.50); Neutrophils % (auto) 64.7 %; Platelet Count 277 K/uL (130-400); RDW Coefficient of Variation 13.3 % (11.5-14.5); RDW Standard Deviation 43.6 fL (36.4-46.3); Red Blood Count 4.05 M/uL (4.20-5.40); White Blood Count 8.62 K/ul (4.8-10.8)
[2024-05-13 07:10] LABS: Albumin Globulin Ratio 1.1 (0.9-2); Albumin Level 3.9 gm/dl (3.4-5.0); BUN Creatinine Ratio 20.8 (10-20); Bilirubin,Total 0.6 mg/dl (0.2-1.0); Calcium 9.1 mg/dl (8.6-10.3); Creatinine Clr Calc Pharmacy 59.4 ml/min; Est GFR (Non-African American) 53.5 ml/min; Globulin 3.5 gm/dl (2.5-4.0); Magnesium 1.9 mg/dl (1.7-2.4); Total Protein 7.4 gm/dl (6.0-8.3)
[2024-05-13 07:15] LABS: Prothrombin Time 11.2 Seconds (9.0-12.0)
--- NOTE | 2024-05-13 09:06 | Hospitalist Progress Note ---
Date of Service May 13, 2024 Assessment & Plan (1) Ambulatory dysfunction: Plan: Currently stable, nontoxic-appearing, and without trauma from her recent falls Patient presented due to concerns for ongoing falls while ambulating with a walker Patient reports that her bilateral lower extremities will suddenly give out on her, denies any prodromal symptoms to suggest cardiac or neurologic pathology at this time Patient did not hit her head or lose consciousness, no acute trauma on exam CT of the head and brain without contrast were negative for acute findings Suspect her recurrent falls are due progressive functional decline, morbid obesity, and her macular degeneration -ordered tick borne serology, this was negative. consulted neurology: assesment was this is Not suggestive of NMJ disorder or does not localize to [employer] or spine. recommended rehab and weight reduction urine on presentation shows alpha strep - initially elected not to treat however will have oral amoxil (2) Hypothyroidism: Plan: TSH is normal Continue levothyroxine (3) HTN (hypertension): Plan: Currently stable continue metoprolol Admission and Anticipated Discharge Date Admission Date: May 10, 2024 Results & Data Results & Data Vital Signs (Past 12 Hours) Vital Signs Temp Pulse Resp BP Pulse Ox O2 Del Method 05/13/24 06:56 98.1 F 81 18 155/82 H 94 Room Air PG Care Time/CCT Total # of Minutes Spent Total Time Spent with Patient: Total time spent is greater than 50% in coordination of care (as documented) at patient's floor/unit and/or counseling patient: Coding Diagnoses Ambulatory dysfunction R26.2 Hypothyroidism E03.9 HTN (hypertension) I10
[2024-05-13] MEDS: AMOXICILLIN 875 MG TAB PO SCH (09:59)
--- NOTE | 2024-05-13 17:49 | Discharge Summary ---
Discharge Summary Date of Service May 13, 2024 Principal Dx & Hospital Course #1 = Principal Diagnosis (1) Ambulatory dysfunction: Currently stable, nontoxic-appearing, and without trauma from her recent falls Patient reports that her bilateral lower extremities will suddenly give out on her, typically uses a walker denies any prodromal symptoms to suggest cardiac or neurologic pathology at this time CT of the head and brain without contrast were negative for acute findings Suspect her recurrent falls are due progressive functional decline, morbid obesity, and her macular degeneration -ordered tick borne serology, this was negative. consulted neurology: assessment was this is Not suggestive of NMJ disorder or does not localize to FILM INSPECTOR or spine. recommended rehab and weight reduction urine on presentation shows alpha strep - initially elected not to treat however will have oral amoxil x 3 days as outpt (2) Hypothyroidism: TSH is normal Continue levothyroxine (3) HTN (hypertension): Currently stable continue metoprolol Plan Pt just wants to go home, did pass PT/OT evaluation Admission HPI Per Admitting Provider Agnieszka is a 68-year-old female with a past medical history significant for hypertension, hypothyroidism, anxiety/depression, morbid obesity, and recurrent falls who presented to the [facility] ED on 05/10/2024 after she had a fall while at [place] this morning. She remained stable in the ED. Labs were significant for a mildly elevated creatinine of 1.33 (baseline is near 1.0). CT of the head without contrast was read as negative for acute findings. Prior to admission the patient was given a 500 mL fluid bolus. We are asked to admit the patient for rehab placement. Patient was sitting in bed in no acute distress at time of exam. She states that she had 2 falls while ambulating today. The first occurred while walking in the parking lot of a local grocery store. She states that she was feeling fine and then her bilateral lower extremities suddenly gave out on her. The second occurred while walking into [employer] restaurant. She describes the same situation as the first fall today. She landed on her bilateral knees during the first fall and landed on her buttocks on the second fall. Denies hitting her head or losing consciousness during both. Denies symptoms such as lightheadedness/dizziness, shortness of breath, chest pain, palpitations, paresthesias, unilateral weakness prior to the falls. States that she has had multiple similar episodes over the past 6 months. Previous falls are similar to these falls that happened today. No recent fever, chills, chest pain, shortness of breath, cough, nausea/vomiting, dysuria, hematuria, diarrhea, melena, lower extremity swelling. She is currently without any pain from her recent falls. When asked, she states that she has macular degeneration in the right eye which causes significant vision loss. States that she has tried to wear a patch over the right eye, unfortunately the vision unilateral left eye is also poor. She denies tripping on prior to her falls and states again that her legs just "give out". She is in agreement with inpatient rehab at the time of discharge to try and build her strength and prevent recurrent falls as she has already been ambulating with her walker which has not been recurrent falls. She wishes to be full code and for her son to make medical decisions for her if she cannot make them herself. Please refer to Dr. Cabrera's attestation for any changes to the treatment plan Discharge Exam Patient awake alert and appropriate. Card exam is regular Lungs are clear extremities are without edema Updated Medication List Medication Instructions Recorded Confirmed Type mecobalamin (vitamin B12) 1,000 1,000 mcg PO QAM 11/13/22 05/10/24 History mcg chewable tablet nabumetone 500 mg tablet 500 mg PO TID 11/13/22 05/10/24 History metoprolol tartrate 100 mg tablet 100 mg PO QAM #90 tabs 11/14/23 05/10/24 Rx (Lopressor) buspirone 15 mg tablet 15 mg PO BID PRN anxiety #180 tabs 01/02/24 05/10/24 Rx hydrocodone 5 mg-acetaminophen 325 0.5 - 1 tab PO BID PRN pain #60 05/09/24 05/10/24 Rx mg tablet tabs bupropion HCl 100 mg tablet,12 hr 100 mg PO BID 05/10/24 05/10/24 History sustained-release clonidine HCl 0.2 mg tablet 0.2 mg PO TID PRN Anxiety 05/10/24 05/10/24 History doxepin 150 mg capsule 150 mg PO HS 05/10/24 05/10/24 History levothyroxine 100 mcg tablet 100 mcg PO DAILYBB 05/10/24 05/10/24 History venlafaxine 150 mg 150 mg PO QAM 05/10/24 05/10/24 History capsule,extended release 24 hr amoxicillin 500 mg tablet 500 mg PO BID #5 tabs 05/13/24 Rx gabapentin 300 mg capsule 300 mg PO TID PRN pain #180 caps 05/13/24 05/10/24 Rx Hospital Stay Data Consultations 05/12/24 09:31 Consult Neurology Routine 05/13/24 12:15 Consult Case Management Ambulatory ONCE Diagnostic Imagining Performed 05/10/24 13:07 CT head/brain wo con Stat Pending Results Patient Have Any Pending Studies at Discharge: No Discharge Instructions Given to Patient (Per Discharging Provider) please work hard with physical therapy at home and continue exercising after they release you consider silver sneakers or similar program at a local work out facility to keep up your physical strengthening, hopefully your primary care or an outpt case management rn can help with that complete your antibiotic therapy Total Time Total Time Spent Total Time Spent (In Minutes): It required greater than 30 minutes to prepare this patient for discharge. Coding Level of Care Code 56643 INP/OBS DISCH >30 MIN Diagnoses Ambulatory dysfunction R26.2 Hypothyroidism E03.9 HTN (hypertension) I10
[2024-05-15 05:17] LABS: Babesia microti DNA Not Detected (Not Detected)
[2024-05-15 09:09] LABS: Ehrlichia chaff DNA Bld Negative (Negative)
== END 2024-05-13 14:10 | disposition home health service (06) | DRG 556 ==
LOC: ED 11:45 → INTOOBSV 16:21 → SUATTDRO 16:21 → EDINP 16:21 → 3E 17:52